=== PATIENT | male | born 1935 | race Caucasian/White ===

== ENCOUNTER 2017-05-17 15:40 | Emergency (ER) | payer OTHER ==
[2017-05-17 15:46] VITALS: BP 117/67; BMI 35.1
--- NOTE | 2017-05-17 16:29 | DR.EXTPAIN ---
HPI - Time seen Time seen: 16:15 - PCP Primary Care Physician: DR. LOZADA - Complaint/Symptoms Chief Complaint Doctor Comments: He states his DrLinda sage gave him meloxicam to take Bid and Tramadol to take up to 5 x/day. He also has Colchicine for Gout. Pain is all over my body, from my head to my toes he states. Nothing is working. He also feels week. Chief Complaint:: PT C/O HR BIENG 40' S AT HOME AND FEELING WEAK, AND HURTING ALL OVER AND HAVING SOME PAINS IN HIS CHEST AT TIMES .. BR PT STATES " I BEEN TO [facility] FOR YEARS AND THEY TOLD ME I HAVE ARTHRITIS. - Nurses notes reviewed Nurses Notes Review: Yes - Source History Provided: Patient - Mode of arrival Mode of Arrival: Ambulatory - Timing Onset of Chief Complaint: 05/16/17 PMH - PMH Past Medical History: Yes Past Medical History: Arthritis, Hypertension Past Medical History Comment: PT HAS BEEN SEEING A HEART DOCTOR ABOUT HIS < HR Past Surgical History: No - Family History History of Family Medical Conditions: No - Social History Does patient currently use any type of tobacco product: No Have you used tobacco products in the last 12 months: No Type of Tobacco Use: None Does any household member use tobacco: No Alcohol Use: None Do you use any recreational Drugs:: No Lives With: Family Lives Where: Home - infectious screening In the last 2 months have you had wt loss of >10#?: NO Have you had fever, night sweats or hemotysis?: No Have you traveled outside the country in the last 6 months?: No Isolation: Standard ROS - Review of Systems Constitutional: No Symptoms Reported Eyes: No Symptoms Reported ENTM: No Symptoms Reported Respiratoy: No Symptoms Reported Cardiovascular: No Symptoms Reported Gastrointestinal/Abdominal: No Symptoms Reported Genitourinary: No Symptoms Reported Neurological: No Symptoms Reported Musculoskeletal: Joint Pain (difuse) Integumentary: No Symptoms Reported Hematologic/Lymphatic: No Symptoms Reported Endocrine: No Symptoms Reported Psychiatric: No Symptoms Reported All Other Systems: Reviewed and Negative PE - Vital Signs Vitals: Temperature 98.2 F Pulse Rate 85 Respiratory Rate 18 Blood Pressure 117/67 O2 Sat by Pulse Oximetry 99 - General Limitations: No Limitations General Appearance: Alert, In No Apparent Distress - Head Head Exam: Normal Inspection - Eyes Eye exam: Normal Appearance - ENT ENT Exam: Normal Exam - Neck Neck Exam: Normal Inspection - Chest Chest Inspection: Normal Inspection - Respiratory Respiratory Exam: Normal Lung Sounds Bilat - Cardiovascular Cardiovascular Exam: Regular Rate, Normal Rhythm, +S1, +S2 - Abdominal Exam Abdominal Exam: Normal Inspection, Normal Bowel Sounds, Soft - Extremities Extremities Exam: Normal Inspection, Other (He has a single tipped cane for ambulatory aid.) - Back Back Exam: Normal Inspection - Neurological Neurological Exam: Alert, Oriented X3, CN II-XII Intact - Psychiatric Psychiatric Exam: Normal Affect, Normal Mood ROR - Labs Reviewed Result Diagrams: 05/17/17 16:29 05/17/17 16:29 Laboratory: WBC 8.0 X10^3/uL (3.6-10.0) 05/17/17 16: RBC 4.89 X10^6/uL (4.7-6.0) 05/17/17 16:29 Hgb 15.2 g/dL (13.5-18.0) 05/17/17 16: Hct 43.0 % (42.0-54.0) 05/17/17 16: MCV 87.9 fL (80.0-100.0) 05/17/17 16:29 MCH 31.2 pg (27.0-34.0) 05/17/17 16: MCHC 35.4 g/dL (33.0-35.0) H 05/17/17 16:29 RDW 13.4 % (11.6-16.5) 05/17/17 16:29 Plt Count 218 X10^3/uL (150.0-450.0) 05/17/17 16:29 MPV 7.4 fL (7.4-11.0) 05/17/17 16:29 Neut % (Auto) 51.5 % (42.0-75.0) 05/17/17 16: Lymph % (Auto) 35.1 % (21.0-51.0) 05/17/17 16:29 [place] % (Auto) 10.3 % (0.0-13.0) 05/17/17 16:29 Eos % (Auto) 1.9 % (0.9-2.9) 05/17/17 16:29 Baso % (Auto) 1.2 % (0.2-1.0) H 05/17/17 16:29 Neut # (Auto) 4.1 x10^3/uL (2.2-4.8) 05/17/17 16:29 Lymph # (Auto) 2.8 X10^3/uL (1.3-2.9) 05/17/17 16:29 [place] # (Auto) 0.8 x10^3/uL (0.3-0.8) 05/17/17 16:29 Eos # (Auto) 0.2 x10^3/uL (0.0-0.2) 05/17/17 16:29 Baso # (Auto) 0.1 X10^3/uL (0.0-0.1) 05/17/17 16:29 Absolute Nucleated RBC 0.0 /100WBC 05/17/17 16:29 Sodium 141 mmol/L (136-145) 05/17/17 16:29 Corrected Sodium TNP 05/17/17 16:29 Potassium 3.6 mmol/L (3.5-5.1) 05/17/17 16:29 Chloride 105 mmol/L (98-107) 05/17/17 16:29 Carbon Dioxide 30.1 mmol/L (21-32) 05/17/17 16:29 BUN 16 mg/dL (7-18) 05/17/17 16:29 Creatinine 1.19 mg/dL (0.70-1.30) 05/17/17 16:29 Est GFR (MDRD) Af Amer > 60 (>60) 05/17/17 16:29 Est GFR (MDRD) Non-Af > 60 (>60) 05/17/17 16:29 Glucose 107 mg/dL (65-99) H 05/17/17 16:29 Calcium 8.9 mg/dL (8.5-10.1) 05/17/17 16:29 Corrected Calcium TNP 05/17/17 16:29 Total Bilirubin 1.00 mg/dL (0.2-1.0) 05/17/17 16:29 AST 24 Units/L (15-37) 05/17/17 16:29 ALT 21 Units/L (12-78) 05/17/17 16:29 Alkaline Phosphatase 62 Units/L (46-116) 05/17/17 16:29 Total Protein 7.3 g/dL (6.4-8.2) 05/17/17 16:29 Albumin 3.6 g/dL (3.4-5.0) 05/17/17 16:29 Globulin 3.7 g/dL (2.5-4.5) 05/17/17 16:29 Albumin/Globulin Ratio 1.0 Ratio (1.1-2.1) L 05/17/17 16:29 Specimen Type Random urine 05/17/17 16:29 Urine Color Yellow (YELLOW) 05/17/17 16:29 Urine Appearance Clear (CLEAR) 05/17/17 16:29 Urine pH 5.0 (5.0 - 8.0) 05/17/17 16:29 Ur Specific [place] 1.010 (1.000-1.030) 05/17/17 16:29 Urine Protein Negative (NEGATIVE) 05/17/17 16:29 Urine Glucose (UA) Negative (NEGATIVE) 05/17/17 16:29 Urine Ketones Negative (NEGATIVE) 05/17/17 16:29 Urine Occult Blood Negative (NEGATIVE) 05/17/17 16:29 Urine Nitrite Negative (NEGATIVE) 05/17/17 16:29 Urine Bilirubin Negative (NEGATIVE) 05/17/17 16:29 Urine Urobilinogen Normal (NORMAL) 05/17/17 16:29 Ur Leukocyte Esterase Negative (NEGATIVE) 05/17/17 16:29 - EKG Rate: 52 [place]: Normal Rhythm: NSR Block: RBBB Hypertrophy: None - Diagnosis Discharge Problem: Multiple joint pain - Discharge Plan Disposition: 01 HOME, SELF-CARE Condition: Stable - Follow ups/Referrals Follow ups/Referrals: KIERRA MCNAMARA V [Primary Care Provider] - 3 days - Instructions Instructions: Musculoskeletal Pain, Joint Pain, [id number]
[2017-05-17 16:49] LABS: BASOPHILS # (AUTO) 0.1 X10^3/uL (0.0-0.1); BASOPHILS % (AUTO) 1.2 % (0.2-1.0); BILIRUBIN,URINE NEGATIVE (NEGATIVE); BLOOD/HEMOGLOBIN,URINE NEGATIVE (NEGATIVE); EOSINOPHILS # (AUTO) 0.2 x10^3/uL (0.0-0.2); EOSINOPHILS % (AUTO) 1.9 % (0.9-2.9); GLUCOSE, URINE NEGATIVE (NEGATIVE); HEMOGLOBIN 15.2 g/dL (13.5-18.0); KETONES,URINE NEGATIVE (NEGATIVE); LEUKOCYTE ESTERASE ,URINE NEGATIVE (NEGATIVE); LYMPHOCYTES # (AUTO) 2.8 X10^3/uL (1.3-2.9); LYMPHOCYTES % (AUTO) 35.1 % (21.0-51.0); MEAN CORPUSCULAR HEMOGLOBIN 31.2 pg (27.0-34.0); MEAN CORPUSCULAR HGB CONC 35.4 g/dL (33.0-35.0); MEAN CORPUSCULAR VOLUME 87.9 fL (80.0-100.0); MEAN PLATELET VOLUME 7.4 fL (7.4-11.0); MONOCYTES # (AUTO) 0.8 x10^3/uL (0.3-0.8); MONOCYTES % (AUTO) 10.3 % (0.0-13.0); NEUTROPHILS # (AUTO) 4.1 x10^3/uL (2.2-4.8); NEUTROPHILS % (AUTO) 51.5 % (42.0-75.0); NITRITES,URINE NEGATIVE (NEGATIVE); PLATELET COUNT 218 X10^3/uL (150.0-450.0); PROTEIN,URINE NEGATIVE (NEGATIVE); RED BLOOD COUNT 4.89 X10^6/uL (4.7-6.0); RED CELL DISTRIBUTION WIDTH 13.4 % (11.6-16.5); UROBILINOGEN,URINE NORMAL (NORMAL)
[2017-05-17] MEDS ORDERED: NORCO 5/325 MG TAB PO ONE (16:52)
[2017-05-17 16:57] LABS: APPEARANCE,URINE CLEAR (CLEAR); COLOR,URINE YELLOW (YELLOW)
[2017-05-17] MEDS ORDERED: NORCO 5/325 MG TAB ONE (17:02)
[2017-05-17 17:06] LABS: ALANINE AMINOTRANSFERASE 21 Units/L (12-78); ALBUMIN 3.6 g/dL (3.4-5.0); ALKALINE PHOSPHATASE 62 Units/L (46-116); ASPARTATE AMINO TRANSFERASE 24 Units/L (15-37); BLOOD UREA NITROGEN 16 mg/dL (7-18); CALCIUM 8.9 mg/dL (8.5-10.1); CARBON DIOXIDE 30.1 mmol/L (21-32); CHLORIDE 105 mmol/L (98-107); CREATININE 1.19 mg/dL (0.70-1.30); SODIUM 141 mmol/L (136-145); TOTAL PROTEIN 7.3 g/dL (6.4-8.2); eGFR BLACK RACES > 60 (>60); eGFR NON BLACK RACES > 60 (>60)
== END 2017-05-17 17:34 | disposition home or self-care (01) ==
LOC: ER 15:55
DX: M25.50 Pain in unspecified joint (principal); R94.31 Abnormal electrocardiogram [ECG] [EKG]
CPT/HCPCS: 36415; 80053; 81003; 85025; 93005; 93010; 99282

== ENCOUNTER 2017-08-11 17:17 | Inpatient (IN) ==
[2017-08-11] MEDS ORDERED: MORPHINE SULFATE INJ 4 MG IM ONE (17:44)
[2017-08-11] MEDS ORDERED: ZOFRAN INJ 4 MG VIAL IM ONE (17:44)
[2017-08-11] MEDS ORDERED: ZOFRAN INJ 4 MG VIAL ONE (17:50)
[2017-08-11] MEDS ORDERED: MORPHINE SULFATE INJ 4 MG ONE (17:50)
[2017-08-11 18:04] LABS: BASOPHILS % (AUTO) 0.1 % (0.2-1.0); EOSINOPHILS # (AUTO) 0.2 x10^3/uL (0.0-0.2); EOSINOPHILS % (AUTO) 1.3 % (0.9-2.9); HEMATOCRIT 37.8 % (42.0-54.0); HEMOGLOBIN 13.3 g/dL (13.5-18.0); LYMPHOCYTES # (AUTO) 1.3 X10^3/uL (1.3-2.9); MEAN CORPUSCULAR HEMOGLOBIN 30.5 pg (27.0-34.0); MEAN CORPUSCULAR HGB CONC 35.1 g/dL (33.0-35.0); MEAN CORPUSCULAR VOLUME 86.8 fL (80.0-100.0); MONOCYTES # (AUTO) 1.6 x10^3/uL (0.3-0.8); MONOCYTES % (AUTO) 11.1 % (0.0-13.0); NEUTROPHILS # (AUTO) 11.4 x10^3/uL (2.2-4.8); NEUTROPHILS % (AUTO) 78.5 % (42.0-75.0); PLATELET COUNT 212 X10^3/uL (150.0-450.0); RED BLOOD COUNT 4.36 X10^6/uL (4.7-6.0); RED CELL DISTRIBUTION WIDTH 13.4 % (11.6-16.5); WHITE BLOOD COUNT 14.6 X10^3/uL (3.6-10.0)
[2017-08-11 18:10] LABS: BLOOD UREA NITROGEN 41 mg/dL (7-18); CALCIUM 8.7 mg/dL (8.5-10.1); CARBON DIOXIDE 25.7 mmol/L (21-32); CHLORIDE 88 mmol/L (98-107); eGFR NON BLACK RACES 13 (>60)
[2017-08-11 18:14] LABS: ALANINE AMINOTRANSFERASE 26 Units/L (12-78); ALBUMIN 2.7 g/dL (3.4-5.0); ALKALINE PHOSPHATASE 85 Units/L (46-116); ASPARTATE AMINO TRANSFERASE 31 Units/L (15-37); COR CA(FOR HYPOALB) 9.7 mg/dL (8.5-10.1); TOTAL PROTEIN 6.9 g/dL (6.4-8.2)
[2017-08-11 18:16] LABS: SODIUM 124 mmol/L (136-145)
--- NOTE | 2017-08-11 20:19 | DR.ABDMALE ---
HPI - Time seen Time seen: 17:30 - PCP Primary Care Physician: Hussein - HPI comment HPI Comment: DEVELOP URINAY RETENSION 08/07/2017. INDWELLING CATH CURRENTLY. TODAY. PAIN GROIN AND PATIENT FELL SICK AND WEAK. NO FEVER. - Complaint Chief Complaint Doctors Comments: GROIN PAIN. INDWELLING RODRIGEZ FOR URINARY RETENSION. Chief Complaint:: Groin Pain Self Treatment fo Chief Complaint: Ultram 50 mg PO - Reviewed Nurses Notes Review: Yes - Mode of arrival Mode of Arrival: Wheelchair - Timing Onset of Chief Complaint: 08/10/17 Came on: Suddenly - Duration Duration: Constant Duration: Days - Location Location: RLQ, LLQ, Suprapubic - Severity Severity: Moderate - Quality Quality: Sharp - Context Onset: At Rest History of: None - Modifying factors Worsening Factors: Nothing Improving Factors: Nothing - Associated signs and symptoms Associated Signs and Symptoms: Other (GROIN PAIN.) PMH - PMH Past Medical History: Yes Past Medical History: Dyslipidemia, Hypertension, Kidney Stones Past Surgical History: Yes Surgical History: Ortho Surgery Past Surgical History Comment: Lower Back x2. Upper Neck - Family History History of Family Medical Conditions: Yes Family Medical History: Heart Failure - Social History Does patient currently use any type of tobacco product: Yes Type of Tobacco Use: Pipe - infectious screening In the last 2 months have you had wt loss of >10#?: NO Have you had fever, night sweats or hemotysis?: No Have you traveled outside the country in the last 6 months?: No Isolation: Standard ROS - Review of Systems Constitutional: Weakness, Fatigue. negative: Chills, Fever Eyes: negative: Eye Pain, Discharge ENTM: negative: Ear Pain, Nose Discharge, Nose Congestion, Throat Pain Respiratoy: Short of Breath. negative: Productive Cough, Non-Productive Cough, Wheezing, Hemoptysis Cardiovascular: Chest Pain Gastrointestinal/Abdominal: Abdominal Pain Genitourinary: Dysuria Neurological: Weakness Musculoskeletal: Back Pain Integumentary: Dryness Hematologic/Lymphatic: No Symptoms Reported Endocrine: No Symptoms Reported All Other Systems: Reviewed and Negative PE - General Limitations: No Limitations General Appearance: Alert - Head Head Exam: Normal Inspection - Eyes Eye exam: Normal Appearance - ENT ENT Exam: Normal External Ear Exam - Neck Neck Exam: Trachea Midline - Chest Chest Inspection: Symmetric Chest Wall Rise - Respiratory Respiratory Exam: Normal Lung Sounds Bilat Respiratory Exam: Bilateral Rhonchi, Lower Rhonchi - Cardiovascular Cardiovascular Exam: Regular Rate, Normal Rhythm, Normal Heart Sounds - Abdominal Exam Abdominal Exam: Normal Bowel Sounds, Soft. negative: Tenderness - Rectal Rectal Exam: Deferred - Back Back Exam: Paraspinal Tenderness - Extremeties Extremities Exam: Normal Inspection - Exam: Male: Deferred - Neurologic Neurological Exam: Alert, Oriented X3 - Psychiatric Psychiatric Exam: Normal Affect, Normal Mood - Skin Skin Exam: Dry - Vital Signs Vital Signs: Temp Pulse Pulse Resp BP BP Pulse Ox 08/11/17 20:57 99.9 F H 72 20 109/63 90 L 08/11/17 17:18 98.8 F 78 22 134/63 98 MDM - Additional Information Obtained From Additional information provided by: Family - Differential Diagnosis Differential Diagnosis: Urinary tract infection, Urolithiasis, Testicular torsion Course - Consultation Consultation Comments: DISCUSS PATIENT DR. DUFF. HE WILL ADMIT PATIENT. - Education/Counseling Education/Counseling: Patient, Family, Education Educated On: Treatment, Diagnosis ROR - Labs Reviewed Laboratory Results Reviewed?: Yes Result Diagrams: 08/12/17 05:29 08/12/17 05:29 - EKG Rhythm: NSR (EKG NOTED.) - Labs Reviewed Laboratory: WBC 14.6 X10^3/uL (3.6-10.0) H 08/11/17 17:54 RBC 4.36 X10^6/uL (4.7-6.0) L 08/11/17 17:54 Hgb 13.3 g/dL (13.5-18.0) L 08/11/17 17:54 Hct 37.8 % (42.0-54.0) L 08/11/17 17:54 MCV 86.8 fL (80.0-100.0) 08/11/17 17:54 MCH 30.5 pg (27.0-34.0) 08/11/17 17:54 MCHC 35.1 g/dL (33.0-35.0) H 08/11/17 17:54 RDW 13.4 % (11.6-16.5) 08/11/17 17:54 Plt Count 212 X10^3/uL (150.0-450.0) 08/11/17 17:54 MPV 7.0 fL (7.4-11.0) L 08/11/17 17:54 Neut % (Auto) 78.5 % (42.0-75.0) H 08/11/17 17:54 Lymph % (Auto) 9.0 % (21.0-51.0) L 08/11/17 17:54 [place] % (Auto) 11.1 % (0.0-13.0) 08/11/17 17:54 Eos % (Auto) 1.3 % (0.9-2.9) 08/11/17 17:54 Baso % (Auto) 0.1 % (0.2-1.0) L 08/11/17 17:54 Neut # (Auto) 11.4 x10^3/uL (2.2-4.8) H 08/11/17 17:54 Lymph # (Auto) 1.3 X10^3/uL (1.3-2.9) 08/11/17 17:54 [place] # (Auto) 1.6 x10^3/uL (0.3-0.8) H 08/11/17 17:54 Eos # (Auto) 0.2 x10^3/uL (0.0-0.2) 08/11/17 17:54 Baso # (Auto) 0.0 X10^3/uL (0.0-0.1) 08/11/17 17:54 Absolute Nucleated RBC 0.0 /100WBC 08/11/17 17:54 Sodium 124 mmol/L (136-145) L* 08/11/17 17:54 Corrected Sodium TNP 08/11/17 17:54 Potassium 4.3 mmol/L (3.5-5.1) 08/11/17 17:54 Chloride 88 mmol/L (98-107) L 08/11/17 17:54 Carbon Dioxide 25.7 mmol/L (21-32) 08/11/17 17:54 BUN 41 mg/dL (7-18) H 08/11/17 17:54 Creatinine 4.80 mg/dL (0.70-1.30) H 08/11/17 17:54 Est GFR (MDRD) Af Amer 15 (>60) L 08/11/17 17:54 Est GFR (MDRD) Non-Af 13 (>60) L 08/11/17 17:54 Glucose 110 mg/dL (65-99) H 08/11/17 17:54 Calcium 8.7 mg/dL (8.5-10.1) 08/11/17 17:54 Corrected Calcium 9.7 mg/dL (8.5-10.1) 08/11/17 17:54 Total Bilirubin 0.60 mg/dL (0.2-1.0) 08/11/17 17:54 AST 31 Units/L (15-37) 08/11/17 17:54 ALT 26 Units/L (12-78) 08/11/17 17:54 Alkaline Phosphatase 85 Units/L (46-116) 08/11/17 17:54 Total Protein 6.9 g/dL (6.4-8.2) 08/11/17 17:54 Albumin 2.7 g/dL (3.4-5.0) L 08/11/17 17:54 Globulin 4.2 g/dL (2.5-4.5) 08/11/17 17:54 Albumin/Globulin Ratio 0.6 Ratio (1.1-2.1) L 08/11/17 17:54 - Diagnosis Discharge Problem: Hyponatremia Acute on chronic renal failure Qualifiers: Acute renal failure type: unspecified Chronic kidney disease stage: unspecified stage Qualified Code(s): N17.9 - Acute kidney failure, unspecified; N18.9 - Chronic kidney disease, unspecified - Discharge Plan Disposition: ADMITTED INPATIENT Condition: Stable
[2017-08-11] MEDS ORDERED: NS 1000 ML 1,000 ML IV ONE (20:24)
[2017-08-11] MEDS ORDERED: DILAUDID PO ONE ×2 (20:26→20:33)
[2017-08-11] MEDS ORDERED: DILAUDID INJ IVP ONE (20:35)
[2017-08-11] MEDS ORDERED: DILAUDID INJ ONE (20:36)
[2017-08-11 21:46] LABS: BILIRUBIN,URINE NEGATIVE (NEGATIVE); BLOOD/HEMOGLOBIN,URINE 5+ (NEGATIVE); GLUCOSE, URINE NEGATIVE (NEGATIVE); KETONES,URINE NEGATIVE (NEGATIVE); LEUKOCYTE ESTERASE ,URINE 1+ (NEGATIVE); NITRITES,URINE NEGATIVE (NEGATIVE); PROTEIN,URINE 2+ (NEGATIVE); UROBILINOGEN,URINE NORMAL (NORMAL)
[2017-08-11 21:48] LABS: APPEARANCE,URINE CLEAR (CLEAR); COLOR,URINE PALE YELLOW (YELLOW)
[2017-08-11 21:55] LABS: AMORPHOUS SEDIMENT,UR 1+ /HPF (NEGATIVE); BACTERIA,URINE NEGATIVE /HPF (NEGATIVE); MUCUS,URINE RARE /HPF (NEGATIVE); SQUAMOUS EPITHELIAL CELL,UR NEGATIVE /HPF (NEGATIVE)
[2017-08-11] MEDS ORDERED: ZOFRAN INJ 4 MG VIAL IVP PRN (22:08)
[2017-08-11 22:21] LABS: CKMB % 1.1 % (<4); CREATINE KINASE 310 Units/L (39-308); CREATINE KINASE MB 3.3 ng/mL (0-4.0); TROPONIN I < 0.02 ng/mL (0-1.5)
[2017-08-11] MEDS: NS 1000 ML 1,000 ML IV SCH (22:50)
[2017-08-11 22:53] VITALS: BMI 33.5
[2017-08-12] MEDS: DILAUDID INJ IVP PRN ×3 (01:51→16:08)
[2017-08-12 06:00] LABS: BASOPHILS % (AUTO) 0.3 % (0.2-1.0); EOSINOPHILS # (AUTO) 0.3 x10^3/uL (0.0-0.2); EOSINOPHILS % (AUTO) 2.4 % (0.9-2.9); HEMATOCRIT 34.4 % (42.0-54.0); HEMOGLOBIN 12.4 g/dL (13.5-18.0); LYMPHOCYTES # (AUTO) 1.3 X10^3/uL (1.3-2.9); LYMPHOCYTES % (AUTO) 10.8 % (21.0-51.0); MEAN CORPUSCULAR HEMOGLOBIN 30.9 pg (27.0-34.0); MEAN PLATELET VOLUME 7.2 fL (7.4-11.0); MONOCYTES # (AUTO) 1.4 x10^3/uL (0.3-0.8); MONOCYTES % (AUTO) 11.7 % (0.0-13.0); NEUTROPHILS # (AUTO) 8.9 x10^3/uL (2.2-4.8); NEUTROPHILS % (AUTO) 74.8 % (42.0-75.0); PLATELET COUNT 190 X10^3/uL (150.0-450.0); RED CELL DISTRIBUTION WIDTH 13.2 % (11.6-16.5); WHITE BLOOD COUNT 11.9 X10^3/uL (3.6-10.0)
[2017-08-12 06:18] LABS: ALANINE AMINOTRANSFERASE 25 Units/L (12-78); ALBUMIN 2.3 g/dL (3.4-5.0); ALKALINE PHOSPHATASE 76 Units/L (46-116); ASPARTATE AMINO TRANSFERASE 32 Units/L (15-37); BLOOD UREA NITROGEN 44 mg/dL (7-18); CALCIUM 8.2 mg/dL (8.5-10.1); CARBON DIOXIDE 22.9 mmol/L (21-32); CHLORIDE 91 mmol/L (98-107); COR CA(FOR HYPOALB) 9.6 mg/dL (8.5-10.1); CREATININE 5.36 mg/dL (0.70-1.30); MAGNESIUM 1.9 mg/dL (1.7-2.9); eGFR NON BLACK RACES 11 (>60)
[2017-08-12] MEDS: NS 1000 ML 1,000 ML IV SCH ×3 (06:28→20:28)
[2017-08-12 06:43] LABS: SODIUM 124 mmol/L (136-145)
[2017-08-12 06:45] LABS: CREATINE KINASE 331 Units/L (39-308); CREATINE KINASE MB 3.3 ng/mL (0-4.0); TROPONIN I < 0.02 ng/mL (0-1.5)
[2017-08-12 08:06] LABS: BILIRUBIN,URINE NEGATIVE (NEGATIVE); BLOOD/HEMOGLOBIN,URINE 5+ (NEGATIVE); GLUCOSE, URINE NEGATIVE (NEGATIVE); KETONES,URINE NEGATIVE (NEGATIVE); LEUKOCYTE ESTERASE ,URINE 3+ (NEGATIVE); NITRITES,URINE NEGATIVE (NEGATIVE); PROTEIN,URINE 4+ (NEGATIVE); UROBILINOGEN,URINE NORMAL (NORMAL)
[2017-08-12 08:15] LABS: APPEARANCE,URINE HAZY (CLEAR); COLOR,URINE YELLOW (YELLOW)
[2017-08-12 08:16] LABS: AMORPHOUS SEDIMENT,UR TRACE /HPF (NEGATIVE); BACTERIA,URINE TRACE /HPF (NEGATIVE); RBC,URINE 0-2 /HPF (NONE SEEN); SQUAMOUS EPITHELIAL CELL,UR RARE /HPF (NEGATIVE)
[2017-08-12] MEDS: CIPRO IV 400 MG PREMIX* 400 MG/200 ML IV.SOLN. IV SCH (08:50)
[2017-08-12] MEDS ORDERED: STERILE WATER IRRIGATION IR ONE (09:31)
[2017-08-12] MEDS: PERCOCET TAB 5/325 MG PO PRN ×2 (10:40→20:28)
--- NOTE | 2017-08-12 10:51 | RAD ---
HISTORY: Abdominal pain, distention Study: Flat and decubitus abdomen, AP chest Comparison: None Findings: The abdominal gas pattern is nonspecific and nonobstructive. No abnormal masses or abnormal calcifica tions are identified. No pneumoperitoneum is present. The chest is clear. IMPRESSION: Unremarkable acute abdominal series Reported By:
--- NOTE | 2017-08-12 11:44 | DR.H&P ---
H&P - History & Physical for Day of: H&P Date: 08/11/17 - Chief Complaint Chief Complaint: SEVERE LOWER ABDOMINA. PAIN, URINARY RETENTION, HAS CATHETER - History of Present Illness History of Present Illness: 82 WM ER ADMISSION AFTER PRESENTING WITH CO DEVELOP URINAY RETENSION 08/07/2017. INDWELLING CATH CURRENTLY. PAIN GROIN AND PATIENT FELL SICK AND WEAK. NO FEVER. PT STATES HE HAD RODRIGEZ PLACED IN ER ON 08/07, FOLLOWED UP WITH DR ESTEVEZ UROLOGIST IN [place] ON THURSDAY AND INSTRUCTED TO RETURN ON THRUS05/14, BUT PAIN WAS SEVERE AND LIMITED URINE OUTPT. PT HAS PMH OF HTN , BPH, AND OA. PT PCP IS DR MCNAMARA IN [place]. PT IN ACUTE RENAL FAILURE ON ADMISSION LABS, ADMITTED FOR TREATMENT AND EVALUATION OF ABDOMINAL PAIN,URINARY RETENTION. - Past Medical History Past Medical History: Dyslipidemia, Hypertension, Kidney Stones - Past Surgical History Surgical History: Ortho Surgery - Family History Family Medical History: Heart Failure - Social History Does patient currently use any type of tobacco product: Yes Have you used tobacco products in the last 12 months: Yes Type of Tobacco Use: Pipe Alcohol Use: None Drug Use: None - Medications Home Medications: No Known Drug Allergies Allergy (Verified 08/11/17 17:44) CONTINUE taking the following medications acetaminophen-codeine [Tylenol-Codeine #3] 1 tab PO Q6H PRN 08/11/17 [History] ciprofloxacin HCl [Cipro] 500 mg PO BID 08/11/17 [History] doxazosin 4 mg PO DAILY 08/11/17 [History] lisinopril-hydrochlorothiazide 1 tab PO DAILY 08/11/17 [History] meloxicam 7.5 mg PO BID 08/11/17 [History] tramadol 100 mg PO TID 08/11/17 [History] - Review of Systems Constitutional: No Symptoms Reported Eyes: No Symptoms Reported ENT: No Symptoms Reported Respiratory: No Symptoms Reported Cardiovascular: No Symptoms Reported Gastrointestinal: Abdominal Pain Genitourinary: Retention Musculoskeletal: Back Pain, Neck Pain Skin: No Symptoms Reported Neurological: No Symptoms Reported - Physical Exam Vital Signs: Temperature 98.8 F Pulse Rate [Right Brachial] 73 Pulse Rate [Left Brachial] 74 Pulse Rate 78 Respiratory Rate 20 Blood Pressure [Right Arm] 101/57 Blood Pressure [Left Arm] 110/78 Blood Pressure 134/63 O2 Sat by Pulse Oximetry 93 Oriented: Normal Eyes: Normal Ear: Normal Nose: Normal Throat: Normal Respiratory: RLL Diminished, LLL Diminished Cardiovascular: Normal, Edema (BILATERAL TRACE LOWER LE EDEMA) : Normal Auscultation: Bowel Sounds: Normal Tenderness: Suprapubic, Severe Skin: Normal Musculoskeletal: Back:Thoracic, Back:Lumbar, Tender (C SPINE) Psychiatric: Agitation Affect: Anxious Speech Pattern: Clear, Appropriate - Assessment/Plan (1) Intractable abdominal pain Status: Acute Plan: ADMIT, IV HYDRATION. PAIN CONTROL, REPEAT AM LABS, CONFIRM HOME MEDS. RODRIGEZ CARE, STRICT I & OS. ADMISSION LABS, UA /UC (2) Acute urinary retention Status: Acute (3) Enlarged prostate with urinary retention Status: Acute (4) Acute on chronic renal failure Qualifiers: Acute renal failure type: unspecified Chronic kidney disease stage: unspecified stage Qualified Code(s): N17.9 - Acute kidney failure, unspecified ; N18.9 - Chronic kidney disease, unspecified Status: Acute - Allergies Allergies/Adverse Reactions: Allergies Allergy/AdvReac Type Severity Reaction Status Date / Time No Known Drug Allergies Allergy Verified 08/11/17 17:44
--- NOTE | 2017-08-12 11:51 | PCM.PROG ---
Progress Note - Progress Note for Day of Date of Exam: 08/12/17 - Subjective Subjective: 82 [facility] ER ADMISSION ON 08/11 WITH URINARY RETENTION AND LOWER ABDOMINAL PAIN, PT RODRIGEZ CATHETER CHANGED WITH IMPROVED ABDOMINAL DISTENTION AND INCREASED URINARY OUTPUT, MONITOR I & OS, INCREASED CREATININE THIS AM, 5.36. WILL ENCOURAGE ORAL HYDRATION WITH IMPROVED RODRIGEZ FUNCTION THIS AM. CT ABD /PELVIC STATE, PAIN CONTROL CONTINUE IV CIPRO, HOLDING LISINOPRIL/HCTZ DUE TO RENAL FAILURE AT THIS TIME. - Past Medical Family Social History Past Med/Fam/Surg Hx: No changes since H&P Allergies: Allergies No Known Drug Allergies Allergy (Verified 08/11/17 17:44) - Review of Systems ROS: No change since H&P - Vital Signs and I&O's Vital Signs: Temperature 99.2 F Pulse Rate [Right Brachial] 66 Pulse Rate [Left Brachial] 74 Pulse Rate 78 Respiratory Rate 20 Blood Pressure [Right Arm] 131/70 Blood Pressure [Left Arm] 110/78 Blood Pressure 134/63 O2 Sat by Pulse Oximetry 96 Intake and Output: Intake & Output 08/09/17 08/10/17 08/11/17 08/12/17 11:59 11:59 11:59 11:59 Intake Total 100 / 100 Output Total 25 / 25 Balance 75 / 75 - Physical Exam Oriented: Normal Eyes: Normal Ear: Normal Nose: Normal Throat: Normal Respiratory: Diminished (MILD LUNG BASES) Cardiovascular: Normal, Edema (BILATERAL TRACE LOWER LE EDEMA) : Normal Auscultation: Bowel Sounds: Normal Tenderness: Suprapubic, Severe Skin: Normal Musculoskeletal: Back:Thoracic, Back:Lumbar, Tender (C SPINE) Psychiatric: Agitation Affect: Anxious Speech Pattern: Clear, Appropriate - Laboratory and Diagnostics Result Diagrams: 08/12/17 05:29 08/12/17 05:29 Labs: 08/12/17 09:55 Axilla - Left Gram Stain - Final Laboratory WBC 11.9 X10^3/uL (3.6-10.0) H 08/12/17 05:29 RBC 4.00 X10^6/uL (4.7-6.0) L 08/12/17 05:29 Hgb 12.4 g/dL (13.5-18.0) L 08/12/17 05:29 Hct 34.4 % (42.0-54.0) L 08/12/17 05:29 MCV 86.0 fL (80.0-100.0) 08/12/17 05:29 MCH 30.9 pg (27.0-34.0) 08/12/17 05:29 MCHC 36.0 g/dL (33.0-35.0) H 08/12/17 05:29 RDW 13.2 % (11.6-16.5) 08/12/17 05:29 Plt Count 190 X10^3/uL (150.0-450.0) 08/12/17 05:29 MPV 7.2 fL (7.4-11.0) L 08/12/17 05:29 Neut % (Auto) 74.8 % (42.0-75.0) 08/12/17 05:29 Lymph % (Auto) 10.8 % (21.0-51.0) L 08/12/17 05:29 [place] % (Auto) 11.7 % (0.0-13.0) 08/12/17 05:29 Eos % (Auto) 2.4 % (0.9-2.9) 08/12/17 05:29 Baso % (Auto) 0.3 % (0.2-1.0) 08/12/17 05:29 Neut # (Auto) 8.9 x10^3/uL (2.2-4.8) H 08/12/17 05:29 Lymph # (Auto) 1.3 X10^3/uL (1.3-2.9) 08/12/17 05:29 [place] # (Auto) 1.4 x10^3/uL (0.3-0.8) H 08/12/17 05:29 Eos # (Auto) 0.3 x10^3/uL (0.0-0.2) H 08/12/17 05:29 Baso # (Auto) 0.0 X10^3/uL (0.0-0.1) 08/12/17 05:29 Absolute Nucleated RBC 0.0 /100WBC 08/12/17 05:29 Sodium 124 mmol/L (136-145) L* 08/12/17 05:29 Corrected Sodium TNP 08/12/17 05:29 Potassium 4.3 mmol/L (3.5-5.1) 08/12/17 05:29 Chloride 91 mmol/L (98-107) L 08/12/17 05:29 Carbon Dioxide 22.9 mmol/L (21-32) 08/12/17 05:29 BUN 44 mg/dL (7-18) H 08/12/17 05:29 Creatinine 5.36 mg/dL (0.70-1.30) H 08/12/17 05:29 Est GFR (MDRD) Af Amer 13 (>60) L 08/12/17 05:29 Est GFR (MDRD) Non-Af 11 (>60) L 08/12/17 05:29 Glucose 95 mg/dL (65-99) 08/12/17 05:29 Calcium 8.2 mg/dL (8.5-10.1) L 08/12/17 05:29 Corrected Calcium 9.6 mg/dL (8.5-10.1) 08/12/17 05:29 Magnesium 1.9 mg/dL (1.7-2.9) 08/12/17 05:29 Total Bilirubin 0.60 mg/dL (0.2-1.0) 08/12/17 05:29 AST 32 Units/L (15-37) 08/12/17 05:29 ALT 25 Units/L (12-78) 08/12/17 05:29 Alkaline Phosphatase 76 Units/L (46-116) 08/12/17 05:29 Creatine Kinase 331 Units/L (39-308) H 08/12/17 05:25 CK-MB (CK-2) 3.3 ng/mL (0-4.0) 08/12/17 05:25 CK/CKMB % Calc 1.0 % (<4) 08/12/17 05:25 Troponin I < 0.02 ng/mL (0-1.5) 08/12/17 05:25 Total Protein 6.0 g/dL (6.4-8.2) L 08/12/17 05:29 Albumin 2.3 g/dL (3.4-5.0) L 08/12/17 05:29 Globulin 3.7 g/dL (2.5-4.5) 08/12/17 05:29 Albumin/Globulin Ratio 0.6 Ratio (1.1-2.1) L 08/12/17 05:29 Specimen Type Catherized urine 08/12/17 07:52 Urine Color Yellow (YELLOW) 08/12/17 07:52 Urine Appearance Hazy (CLEAR) 08/12/17 07:52 Urine pH 6.0 (5.0 - 8.0) 08/12/17 07:52 Ur Specific [place] 1.010 (1.000-1.030) 08/12/17 07:52 Urine Protein 4+ (NEGATIVE) 08/12/17 07:52 Urine Glucose (UA) Negative (NEGATIVE) 08/12/17 07:52 Urine Ketones Negative (NEGATIVE) 08/12/17 07:52 Urine Occult Blood 5+ (NEGATIVE) 08/12/17 07:52 Urine Nitrite Negative (NEGATIVE) 08/12/17 07:52 Urine Bilirubin Negative (NEGATIVE) 08/12/17 07:52 Urine Urobilinogen Normal (NORMAL) 08/12/17 07:52 Ur Leukocyte Esterase 3+ (NEGATIVE) 08/12/17 07:52 Urine RBC 0-2 /HPF (NONE SEEN) 08/12/17 07:52 Urine WBC 3-5 /HPF (NONE SEEN) 08/12/17 07:52 Ur Squamous Epith Cells Rare /HPF (NEGATIVE) 08/12/17 07:52 Amorphous Sediment Trace /HPF (NEGATIVE) 08/12/17 07:52 Urine Bacteria Trace /HPF (NEGATIVE) 08/12/17 07:52 Urine Mucus Rare /HPF (NEGATIVE) 08/11/17 21:40 Ur Culture Indicated? No/not indicated 08/12/17 07:52 - Plan (1) Intractable abdominal pain Status: Acute Plan: IV HYDRATION, CT ABD/PELVIS STAT THIS AM. PAIN CONTROL, REPEAT AM LABS, CONFIRM HOME MEDS. RODRIGEZ CARE, STRICT I & OS. ADMISSION LABS UA /UC (2) Acute urinary retention Status: Acute Plan: RODRIGEZ CATH CHANGED WITH IMPROVED URINARY OUTPT. CT ABD/PELVIS TODAY. PSA LEVEL, IV CIPRO (3) Enlarged prostate with urinary retention Status: Acute (4) Acute on chronic renal failure Status: Acute Qualifiers: Acute renal failure type: unspecified Chronic kidney disease stage: unspecified stage Qualified Code(s): N17.9 - Acute kidney failure, unspecified ; N18.9 - Chronic kidney disease, unspecified Plan: HYDRATION, R/O OBSTRUCTION BPH/RENAL STONE? HOLD DIURETICS, BP MONITORING
[2017-08-12] MEDS ORDERED: DOXAZOSIN 4 MG PO SCH (12:00)
[2017-08-12] MEDS ORDERED: CARDURA PO SCH (12:00)
[2017-08-12 12:03] LABS: CKMB % 1.2 % (<4); CREATINE KINASE 342 Units/L (39-308); TROPONIN I < 0.02 ng/mL (0-1.5)
[2017-08-12] MEDS: AYR NASAL DROPS SCH ×3 (12:31→20:28)
[2017-08-12] MEDS: MILK OF MAGNESIA PO SCH ×2 (12:32→20:29)
--- NOTE | 2017-08-12 12:32 | CT ---
HISTORY: Abdominal distention and severe pain Study: CT abdomen and pelvis without contrast Comparison: None Technique: Multiple axial images of the abdomen and pelvis were obtained without IV contrast. Dose reduction t echniques including Automated Exposure Control (AEC) and adjustment of mA and kV were utilized. Findings: Please note evaluation is limited without use of IV contrast. There is a trace left pleural effusion. Cardiomegaly is noted. The liver, spleen, pancreas, and adre nal glands are unremarkable in their unenhanced CT appearance. The gallbladder is normal. There is bi lateral hydronephrosis and hydroureter, worse on the left to the level of the urinary bladder. There is severe enlargement of the prostate gland with a Piper catheter is seen in the urinary bladder. Fin dings could be on the basis of bladder outlet obstruction. Superimposed infection not excluded. There are punctate nonobstructing bilateral renal calculi but no stones are identified within the ureters. No free intraperitoneal air. No evidence of intestinal obstruction or inflammation. There is retained stool throughout the colon. The appendix is not visualized. No ascites is seen. There is a fat containing umbilical hernia. Multilevel postsurgical and degenerative changes of the l umbar spine are present spanning L2 through L5. Limited evaluation of vascular structures due to lack of contrast. No pathologically enlarged lymph nodes are identified. IMPRESSION: 1. Bilateral hydroureteronephrosis to the level of the urinary bladder with severe enlargement of the prostate gland suggesting this could be due to bladder outlet obstruction. There is a Piper catheter in place with moderate bladder distention. There is surrounding edema and stranding therefore superi mposed infection is not excluded, correlate with urinalysis. There are punctate nonobstructing bilate ral renal calculi without evidence of ureteral stones. 2. Cardiomegaly and trace left pleural effusion. 3. Retained stool throughout the colon. Reported By:
[2017-08-12] MEDS ORDERED: ZOFRAN INJ 4 MG VIAL IVP PRN (14:08)
[2017-08-12 15:12] LABS: ALBUMIN 2.5 g/dL (3.4-5.0); CALCIUM 9.2 mg/dL (8.5-10.1); CARBON DIOXIDE 26.7 mmol/L (21-32); COR CA(FOR HYPOALB) 10.4 mg/dL (8.5-10.1); TOTAL PROTEIN 6.6 g/dL (6.4-8.2)
[2017-08-12] MEDS: ROCEPHIN 1 GRAM IV PREMIX 1 G/50 ML IV.SOLN. IV SCH (16:08)
[2017-08-12] MEDS ORDERED: PROSCAR PO SCH (18:00)
[2017-08-12] MEDS: PROSCAR PO SCH (20:29)
[2017-08-12] MEDS: FLOMAX PO SCH (20:29)
[2017-08-12] MEDS ORDERED: FLOMAX PO SCH (21:00)
[2017-08-13] MEDS ORDERED: DULCOLAX SUPPOSITORY 10 MG RECTAL ONE (00:57)
[2017-08-13] MEDS ORDERED: COLACE CAP 100 MG PO PRN (01:02)
[2017-08-13 05:15] LABS: BASOPHILS # (AUTO) 0.1 X10^3/uL (0.0-0.1); BASOPHILS % (AUTO) 0.6 % (0.2-1.0); EOSINOPHILS # (AUTO) 0.2 x10^3/uL (0.0-0.2); EOSINOPHILS % (AUTO) 1.7 % (0.9-2.9); HEMATOCRIT 35.6 % (42.0-54.0); HEMOGLOBIN 12.8 g/dL (13.5-18.0); LYMPHOCYTES # (AUTO) 1.1 X10^3/uL (1.3-2.9); LYMPHOCYTES % (AUTO) 12.5 % (21.0-51.0); MEAN CORPUSCULAR VOLUME 86.1 fL (80.0-100.0); MEAN PLATELET VOLUME 6.9 fL (7.4-11.0); MONOCYTES # (AUTO) 1.2 x10^3/uL (0.3-0.8); MONOCYTES % (AUTO) 12.6 % (0.0-13.0); NEUTROPHILS # (AUTO) 6.7 x10^3/uL (2.2-4.8); NEUTROPHILS % (AUTO) 72.6 % (42.0-75.0); PLATELET COUNT 230 X10^3/uL (150.0-450.0); RED BLOOD COUNT 4.14 X10^6/uL (4.7-6.0); RED CELL DISTRIBUTION WIDTH 13.2 % (11.6-16.5); WHITE BLOOD COUNT 9.2 X10^3/uL (3.6-10.0)
[2017-08-13 05:30] LABS: ALBUMIN 2.4 g/dL (3.4-5.0); CALCIUM 9.1 mg/dL (8.5-10.1); CARBON DIOXIDE 28.8 mmol/L (21-32); COR CA(FOR HYPOALB) 10.4 mg/dL (8.5-10.1); CREATININE 1.89 mg/dL (0.70-1.30); TOTAL PROTEIN 6.2 g/dL (6.4-8.2)
[2017-08-13] MEDS: MILK OF MAGNESIA PO SCH ×2 (08:47→21:02)
[2017-08-13] MEDS: CIPRO IV 400 MG PREMIX* 400 MG/200 ML IV.SOLN. IV SCH (08:47)
[2017-08-13] MEDS: PROSCAR PO SCH (08:47)
[2017-08-13] MEDS: AYR NASAL DROPS SCH ×4 (08:47→21:03)
[2017-08-13] MEDS: ROCEPHIN 1 GRAM IV PREMIX 1 G/50 ML IV.SOLN. IV SCH (08:48)
[2017-08-13] MEDS: NS 1000 ML 1,000 ML IV SCH ×2 (10:39→16:31)
[2017-08-13] MEDS: PERCOCET TAB 5/325 MG PO PRN ×2 (11:32→21:00)
--- NOTE | 2017-08-13 13:30 | PCM.PROG ---
Progress Note - Progress Note for Day of Date of Exam: 08/13/17 - Subjective Subjective: 82 WM ER ADMISSION ON 08/11 WITH URINARY RETENTION AND LOWER ABDOMINAL PAIN, PT RODRIGEZ CATHETER CHANGED WITH IMPROVED ABDOMINAL DISTENTION AND INCREASED URINARY OUTPUT, MONITOR I & OS, INCREASED CREATININE THIS AM, 1.89 WILL ENCOURAGE ORAL HYDRATION WITH IMPROVED RODRIGEZ FUNCTION THIS AM. , PAIN CONTROL CONTINUE IV CIPRO, HOLDING LISINOPRIL/HCTZ DUE TO RENAL FAILURE AT THIS TIME. - Past Medical Family Social History Past Med/Fam/Surg Hx: No changes since H&P Allergies: Allergies No Known Drug Allergies Allergy (Verified 08/11/17 17:44) - Review of Systems ROS: No change since H&P - Vital Signs and I&O's Vital Signs: Temperature 98.3 F Pulse Rate [Right Brachial] 93 Pulse Rate [Left Brachial] 74 Pulse Rate 78 Respiratory Rate 20 Blood Pressure [Right Arm] 119/67 Blood Pressure [Left Arm] 110/78 Blood Pressure 134/63 O2 Sat by Pulse Oximetry 95 Intake and Output: Intake & Output 08/11/17 08/12/17 08/13/17 08/14/17 11:59 11:59 11:59 11:59 Intake Total 100 / 100 2760 / 2760 Output Total 25 / 25 9675 / 9675 Balance 75 / 75 -6915 / -6915 - Physical Exam Oriented: Normal Eyes: Normal Ear: Normal Nose: Normal Throat: Normal Respiratory: Diminished (MILD LUNG BASES) Cardiovascular: Normal, Edema (BILATERAL TRACE LOWER LE EDEMA) : Normal Auscultation: Bowel Sounds: Normal Tenderness: Suprapubic, Severe Skin: Normal Musculoskeletal: Back:Thoracic, Back:Lumbar, Tender (C SPINE) Psychiatric: Agitation Affect: Anxious Speech Pattern: Clear, Appropriate - Laboratory and Diagnostics Result Diagrams: 08/13/17 04:35 08/13/17 04:35 Labs: 08/12/17 07:52 Urine,Clean Catch Urine Culture - Preliminary 08/12/17 09:55 Axilla - Left Gram Stain - Final 08/12/17 09:55 Axilla - Left Wound Culture - Preliminary Laboratory WBC 9.2 X10^3/uL (3.6-10.0) 08/13/17 04:35 RBC 4.14 X10^6/uL (4.7-6.0) L 08/13/17 04:35 Hgb 12.8 g/dL (13.5-18.0) L 08/13/17 04:35 Hct 35.6 % (42.0-54.0) L 08/13/17 04:35 MCV 86.1 fL (80.0-100.0) 08/13/17 04:35 MCH 31.0 pg (27.0-34.0) 08/13/17 04:35 MCHC 36.0 g/dL (33.0-35.0) H 08/13/17 04:35 RDW 13.2 % (11.6-16.5) 08/13/17 04:35 Plt Count 230 X10^3/uL (150.0-450.0) 08/13/17 04:35 MPV 6.9 fL (7.4-11.0) L 08/13/17 04:35 Neut % (Auto) 72.6 % (42.0-75.0) 08/13/17 04:35 Lymph % (Auto) 12.5 % (21.0-51.0) L 08/13/17 04:35 [place] % (Auto) 12.6 % (0.0-13.0) 08/13/17 04:35 Eos % (Auto) 1.7 % (0.9-2.9) 08/13/17 04:35 Baso % (Auto) 0.6 % (0.2-1.0) 08/13/17 04:35 Neut # (Auto) 6.7 x10^3/uL (2.2-4.8) H 08/13/17 04:35 Lymph # (Auto) 1.1 X10^3/uL (1.3-2.9) L 08/13/17 04:35 [place] # (Auto) 1.2 x10^3/uL (0.3-0.8) H 08/13/17 04:35 Eos # (Auto) 0.2 x10^3/uL (0.0-0.2) 08/13/17 04:35 Baso # (Auto) 0.1 X10^3/uL (0.0-0.1) 08/13/17 04:35 Absolute Nucleated RBC 0.0 /100WBC 08/13/17 04:35 Sodium 139 mmol/L (136-145) 08/13/17 04:35 Corrected Sodium 139 mmol/L (136-145) 08/13/17 04:35 Potassium 4.1 mmol/L (3.5-5.1) 08/13/17 04:35 Chloride 104 mmol/L (98-107) 08/13/17 04:35 Carbon Dioxide 28.8 mmol/L (21-32) 08/13/17 04:35 BUN 25 mg/dL (7-18) H 08/13/17 04:35 Creatinine 1.89 mg/dL (0.70-1.30) H 08/13/17 04:35 Est GFR (MDRD) Af Amer 44 (>60) L 08/13/17 04:35 Est GFR (MDRD) Non-Af 37 (>60) L 08/13/17 04:35 Glucose 111 mg/dL (65-99) H 08/13/17 04:35 Calcium 9.1 mg/dL (8.5-10.1) 08/13/17 04:35 Corrected Calcium 10.4 mg/dL (8.5-10.1) H 08/13/17 04:35 Magnesium 1.9 mg/dL (1.7-2.9) 08/12/17 05:29 Total Bilirubin 0.50 mg/dL (0.2-1.0) 08/13/17 04:35 AST 41 Units/L (15-37) H 08/13/17 04:35 ALT 34 Units/L (12-78) 08/13/17 04:35 Alkaline Phosphatase 100 Units/L (46-116) 08/13/17 04:35 Creatine Kinase 342 Units/L (39-308) H 08/12/17 10:53 CK-MB (CK-2) 4.0 ng/mL (0-4.0) 08/12/17 10:53 CK/CKMB % Calc 1.2 % (<4) 08/12/17 10:53 Troponin I < 0.02 ng/mL (0-1.5) 08/12/17 10:53 Total Protein 6.2 g/dL (6.4-8.2) L 08/13/17 04:35 Albumin 2.4 g/dL (3.4-5.0) L 08/13/17 04:35 Globulin 3.8 g/dL (2.5-4.5) 08/13/17 04:35 Albumin/Globulin Ratio 0.6 Ratio (1.1-2.1) L 08/13/17 04:35 Total PSA 37.30 ng/mL (0.13-4.0) H 08/12/17 05:29 Specimen Type Catherized urine 08/12/17 07:52 Urine Color Yellow (YELLOW) 08/12/17 07:52 Urine Appearance Hazy (CLEAR) 08/12/17 07:52 Urine pH 6.0 (5.0 - 8.0) 08/12/17 07:52 Ur Specific [place] 1.010 (1.000-1.030) 08/12/17 07:52 Urine Protein 4+ (NEGATIVE) 08/12/17 07:52 Urine Glucose (UA) Negative (NEGATIVE) 08/12/17 07:52 Urine Ketones Negative (NEGATIVE) 08/12/17 07:52 Urine Occult Blood 5+ (NEGATIVE) 08/12/17 07:52 Urine Nitrite Negative (NEGATIVE) 08/12/17 07:52 Urine Bilirubin Negative (NEGATIVE) 08/12/17 07:52 Urine Urobilinogen Normal (NORMAL) 08/12/17 07:52 Ur Leukocyte Esterase 3+ (NEGATIVE) 08/12/17 07:52 Urine RBC 0-2 /HPF (NONE SEEN) 08/12/17 07:52 Urine WBC 3-5 /HPF (NONE SEEN) 08/12/17 07:52 Ur Squamous Epith Cells Rare /HPF (NEGATIVE) 08/12/17 07:52 Amorphous Sediment Trace /HPF (NEGATIVE) 08/12/17 07:52 Urine Bacteria Trace /HPF (NEGATIVE) 08/12/17 07:52 Urine Mucus Rare /HPF (NEGATIVE) 08/11/17 21:40 Ur Culture Indicated? No/not indicated 08/12/17 07:52 - Plan (1) Intractable abdominal pain Status: Acute Plan: IV HYDRATION,. PAIN CONTROL, REPEAT AM LABS, CONFIRM HOME MEDS. RODRIGEZ CARE, STRICT I & OS. AM LABS UA /UC (2) Acute urinary retention Status: Acute Plan: RODRIGEZ CATH CHANGED WITH IMPROVED URINARY OUTPT. PSA LEVEL, IV CIPRO (3) Enlarged prostate with urinary retention Status: Acute (4) Acute on chronic renal failure Status: Acute Qualifiers: Acute renal failure type: unspecified Chronic kidney disease stage: unspecified stage Qualified Code(s): N17.9 - Acute kidney failure, unspecified ; N18.9 - Chronic kidney disease, unspecified Plan: HYDRATION, R/O OBSTRUCTION BPH/RENAL STONE? HOLD DIURETICS, BP MONITORING
[2017-08-13] MEDS ORDERED: NYSTATIN POWDER ONE (13:43)
[2017-08-13] MEDS: NYSTATIN POWDER TOP SCH ×2 (13:45→21:02)
[2017-08-13] MEDS ORDERED: VISTARIL PO ONE (15:42)
[2017-08-13] MEDS: VISTARIL PO PRN ×2 (15:56→23:23)
[2017-08-13] MEDS: FLOMAX PO SCH (21:01)
[2017-08-13] MEDS: DILAUDID INJ IVP PRN (21:55)
[2017-08-14] MEDS: NS 1000 ML 1,000 ML IV SCH (02:16)
[2017-08-14 06:16] LABS: BASOPHILS # (AUTO) 0.1 X10^3/uL (0.0-0.1); BASOPHILS % (AUTO) 0.6 % (0.2-1.0); EOSINOPHILS % (AUTO) 0.1 % (0.9-2.9); HEMATOCRIT 38.4 % (42.0-54.0); HEMOGLOBIN 13.5 g/dL (13.5-18.0); LYMPHOCYTES # (AUTO) 0.7 X10^3/uL (1.3-2.9); LYMPHOCYTES % (AUTO) 4.7 % (21.0-51.0); MEAN CORPUSCULAR HEMOGLOBIN 30.6 pg (27.0-34.0); MEAN CORPUSCULAR HGB CONC 35.2 g/dL (33.0-35.0); MEAN CORPUSCULAR VOLUME 86.9 fL (80.0-100.0); MEAN PLATELET VOLUME 6.7 fL (7.4-11.0); MONOCYTES # (AUTO) 1.9 x10^3/uL (0.3-0.8); MONOCYTES % (AUTO) 11.6 % (0.0-13.0); NEUTROPHILS # (AUTO) 13.3 x10^3/uL (2.2-4.8); PLATELET COUNT 268 X10^3/uL (150.0-450.0); RED BLOOD COUNT 4.42 X10^6/uL (4.7-6.0); RED CELL DISTRIBUTION WIDTH 13.4 % (11.6-16.5)
[2017-08-14 06:32] LABS: ALBUMIN 2.9 g/dL (3.4-5.0); CALCIUM 9.6 mg/dL (8.5-10.1); CARBON DIOXIDE 25.7 mmol/L (21-32); COR CA(FOR HYPOALB) 10.5 mg/dL (8.5-10.1); CREATININE 1.89 mg/dL (0.70-1.30); TOTAL PROTEIN 7.2 g/dL (6.4-8.2)
--- NOTE | 2017-08-14 08:43 | RAD ---
HISTORY: Fever. COPD. Diminished breath sounds. Study: AP portable chest Comparison: 08/12/2017 Findings: The lungs are clear. The heart size is normal allowing for technique. No acute bony abnormalities a re identified. [id number] degenerative changes present in the shoulders. Prior cervical spine surgery been performed. IMPRESSION: 1. No radiographic evidence of acute cardiopulmonary disease or significant change is noted when co mpared to the prior examination. Reported By:
[2017-08-14] MEDS: CIPRO IV 400 MG PREMIX* 400 MG/200 ML IV.SOLN. IV SCH (08:45)
[2017-08-14] MEDS: MILK OF MAGNESIA PO SCH ×2 (08:46→20:45)
[2017-08-14] MEDS: PROSCAR PO SCH (08:46)
[2017-08-14] MEDS: ROCEPHIN 1 GRAM IV PREMIX 1 G/50 ML IV.SOLN. IV SCH (08:46)
[2017-08-14] MEDS ORDERED: HALDOL INJ IM ONE (09:39)
[2017-08-14] MEDS ORDERED: GEODON INJ IM STA (10:23)
[2017-08-14] MEDS: NYSTATIN POWDER TOP SCH ×2 (10:54→20:45)
[2017-08-14] MEDS: AYR NASAL DROPS SCH ×4 (10:57→20:45)
[2017-08-14 15:09] LABS: BILIRUBIN,URINE NEGATIVE (NEGATIVE); BLOOD/HEMOGLOBIN,URINE 4+ (NEGATIVE); GLUCOSE, URINE NEGATIVE (NEGATIVE); KETONES,URINE NEGATIVE (NEGATIVE); LEUKOCYTE ESTERASE ,URINE NEGATIVE (NEGATIVE); NITRITES,URINE NEGATIVE (NEGATIVE); PROTEIN,URINE 1+ (NEGATIVE); UROBILINOGEN,URINE NORMAL (NORMAL)
--- NOTE | 2017-08-14 15:14 | CT ---
HISTORY: Altered mental status Study: CT brain without contrast Comparison: None Technique: Multiple axial images of the brain were obtained without administration of IV contrast. Dose reducti on techniques including Automated Exposure Control (AEC) and adjustment of mA and kV were utilized. Findings: There is generalized moderate to advanced cerebral volume loss and nonspecific white matter hypoatten uation likely related to chronic microvascular ischemic changes. No evidence of acute hemorrhage, mi dline shift, mass effect or abnormal extra-axial fluid collection. The ventricular system is symmetr ic and nondilated. The soft tissues and osseous structures are unremarkable. The visualized paranasa l sinuses are clear. IMPRESSION: 1. Cerebral volume loss and nonspecific white matter changes suggesting chronic microvascular disease . No acute intracranial abnormality identified. Reported By:
[2017-08-14 15:18] LABS: APPEARANCE,URINE CLEAR (CLEAR); BACTERIA,URINE NEGATIVE /HPF (NEGATIVE); COLOR,URINE YELLOW (YELLOW); SQUAMOUS EPITHELIAL CELL,UR RARE /HPF (NEGATIVE)
--- NOTE | 2017-08-14 15:23 | CT ---
HISTORY: Abdominal distention and severe pain Study: CT abdomen and pelvis without contrast Comparison: 08/12/2017 Technique: Multiple axial images of the abdomen and pelvis were obtained without IV contrast. Dose reduction t echniques including Automated Exposure Control (AEC) and adjustment of mA and kV were utilized. Findings: Please note evaluation is limited without use of IV contrast. There is stable cardiomegaly. The liver, spleen, pancreas, and adrenal glands are unremarkable in th eir unenhanced CT appearance. The gallbladder is normal. There is persistent bilateral perinephric st randing and mild hydroureteronephrosis to the level of the urinary bladder. The bladder is decompress ed around a Piper catheter. There is severe enlargement of the prostate gland suggesting findings cou ld be related to bladder outlet obstruction. Superimposed infection not excluded. No free intraperitoneal air. No evidence of intestinal obstruction or inflammation. There is moderate retained stool in the colon. No free fluid is identified. The appendix is not seen. There is a fat containing umbilical hernia and chronic postsurgical changes of the lumbar spine. Limi liliam evaluation of vascular structures due to lack of contrast. No pathologically enlarged lymph nodes are identified. IMPRESSION: 1. Stable findings of bilateral perinephric stranding and mild hydroureteronephrosis to the level of the urinary bladder with severe enlargement of the prostate gland. Urinary bladder is decompressed ar ound a Piper catheter. Correlation with urinalysis recommended to exclude infection. 2. Moderate retained stool throughout the colon. 3. Fat containing umbilical hernia and additional chronic findings as described. Reported By:
[2017-08-14] MEDS: FLOMAX PO SCH (20:44)
[2017-08-14] MEDS: COLACE CAP 100 MG PO SCH (20:44)
[2017-08-15 06:03] LABS: BASOPHILS # (AUTO) 0.2 X10^3/uL (0.0-0.1); BASOPHILS % (AUTO) 1.1 % (0.2-1.0); EOSINOPHILS # (AUTO) 0.2 x10^3/uL (0.0-0.2); EOSINOPHILS % (AUTO) 1.7 % (0.9-2.9); HEMATOCRIT 36.5 % (42.0-54.0); HEMOGLOBIN 12.8 g/dL (13.5-18.0); LYMPHOCYTES # (AUTO) 2.4 X10^3/uL (1.3-2.9); LYMPHOCYTES % (AUTO) 17.2 % (21.0-51.0); MEAN CORPUSCULAR HEMOGLOBIN 30.7 pg (27.0-34.0); MEAN CORPUSCULAR HGB CONC 35.1 g/dL (33.0-35.0); MEAN CORPUSCULAR VOLUME 87.5 fL (80.0-100.0); MEAN PLATELET VOLUME 6.9 fL (7.4-11.0); MONOCYTES # (AUTO) 1.6 x10^3/uL (0.3-0.8); MONOCYTES % (AUTO) 11.4 % (0.0-13.0); NEUTROPHILS # (AUTO) 9.5 x10^3/uL (2.2-4.8); NEUTROPHILS % (AUTO) 68.6 % (42.0-75.0); PLATELET COUNT 249 X10^3/uL (150.0-450.0); RED BLOOD COUNT 4.17 X10^6/uL (4.7-6.0); RED CELL DISTRIBUTION WIDTH 13.4 % (11.6-16.5); WHITE BLOOD COUNT 13.8 X10^3/uL (3.6-10.0)
[2017-08-15 06:36] LABS: ALANINE AMINOTRANSFERASE 48 Units/L (12-78); ALBUMIN 2.5 g/dL (3.4-5.0); ALKALINE PHOSPHATASE 89 Units/L (46-116); ASPARTATE AMINO TRANSFERASE 49 Units/L (15-37); BLOOD UREA NITROGEN 16 mg/dL (7-18); CALCIUM 9.2 mg/dL (8.5-10.1); CARBON DIOXIDE 27.6 mmol/L (21-32); CHLORIDE 106 mmol/L (98-107); COR CA(FOR HYPOALB) 10.4 mg/dL (8.5-10.1); CREATININE 1.12 mg/dL (0.70-1.30); SODIUM 142 mmol/L (136-145); TOTAL PROTEIN 6.7 g/dL (6.4-8.2); eGFR NON BLACK RACES > 60 (>60)
[2017-08-15] MEDS: AYR NASAL DROPS SCH ×4 (08:00→21:54)
[2017-08-15] MEDS: MILK OF MAGNESIA PO SCH (08:49)
[2017-08-15] MEDS: PROSCAR PO SCH (08:49)
[2017-08-15] MEDS: COLACE CAP 100 MG PO SCH ×2 (08:49→21:54)
[2017-08-15] MEDS: NYSTATIN POWDER TOP SCH ×2 (08:50→21:54)
[2017-08-15] MEDS: CIPRO IV 400 MG PREMIX* 400 MG/200 ML IV.SOLN. IV SCH (08:50)
[2017-08-15] MEDS: ROCEPHIN 1 GRAM IV PREMIX 1 G/50 ML IV.SOLN. IV SCH (08:50)
[2017-08-15] MEDS: NICOTINE PATCH TD SCH (15:45)
[2017-08-15] MEDS ORDERED: MILK OF MAGNESIA PO PRN (16:49)
[2017-08-15] MEDS: NS 1000 ML 1,000 ML IV SCH (17:28)
[2017-08-15] MEDS: RESTORIL CAP 15 MG PO PRN (19:21)
[2017-08-15] MEDS: ATIVAN INJ 2 MG VIAL IVP PRN (19:21)
[2017-08-15] MEDS: FLOMAX PO SCH (21:54)
--- NOTE | 2017-08-15 22:46 | PCM.PROG ---
Progress Note - Progress Note for Day of Date of Exam: 08/15/17 - Subjective Subjective: 82 WM ER ADMISSION ON 08/11 WITH URINARY RETENTION AND LOWER ABDOMINAL PAIN, PT RODRIGEZ CATHETER CHANGED WITH IMPROVED ABDOMINAL DISTENTION AND INCREASED URINARY OUTPUT, PATIENT TODAY IS TEARFUL. QUESTIONS WHAT IS BEING DONE WITH HIS BPH. DID SEE UROLOGIST LAST WEEK AND HE KNOWS HE IS NOT A CANDIDATE FOR SURGERY. STATES THAT HE HAS HAD HIS PROSTATE "RIMMED OUT" IN PAST. - Past Medical Family Social History Past Med/Fam/Surg Hx: No changes since H&P Allergies: Allergies No Known Drug Allergies Allergy (Verified 08/11/17 17:44) - Review of Systems ROS: No change since H&P - Vital Signs and I&O's Vital Signs: Temperature 98.5 F Pulse Rate [Right Brachial] 87 Pulse Rate [Left Brachial] 74 Pulse Rate 78 Respiratory Rate 20 Blood Pressure [Right Arm] 133/79 Blood Pressure [Left Arm] 120/73 Blood Pressure 134/63 O2 Sat by Pulse Oximetry 91 Intake and Output: Intake & Output 08/13/17 08/14/17 08/15/17 08/16/17 11:59 11:59 11:59 11:59 Intake Total 2760 / 2760 3030 / 3030 2432 / 2432 800 / 800 Output Total 9675 / 9675 3300 / 3300 4350 / 4350 1000 / 1000 Balance -6915 / -6915 -270 / -270 -1918 / -1918 -200 / -200 - Physical Exam Oriented: Normal Eyes: Normal Ear: Normal Nose: Normal Throat: Normal Respiratory: Diminished (MILD LUNG BASES) Cardiovascular: Normal, Edema (BILATERAL TRACE LOWER LE EDEMA) : Normal Auscultation: Bowel Sounds: Normal Tenderness: Suprapubic, Severe Skin: Normal Musculoskeletal: Back:Thoracic, Back:Lumbar, Tender (C SPINE) Psychiatric: Agitation Mood Description: Depressed (CRIES EASILY), Sad Affect: Anxious Speech Pattern: Clear, Appropriate - Laboratory and Diagnostics Result Diagrams: 08/15/17 05:12 08/15/17 05:12 Labs: 08/12/17 07:52 Urine,Clean Catch Urine Culture - Final 08/12/17 09:55 Axilla - Left Gram Stain - Final 08/12/17 09:55 Axilla - Left Wound Culture - Final Methicillin Resis Staph Aureus Laboratory WBC 13.8 X10^3/uL (3.6-10.0) H 08/15/17 05:12 RBC 4.17 X10^6/uL (4.7-6.0) L 08/15/17 05:12 Hgb 12.8 g/dL (13.5-18.0) L 08/15/17 05:12 Hct 36.5 % (42.0-54.0) L 08/15/17 05:12 MCV 87.5 fL (80.0-100.0) 08/15/17 05:12 MCH 30.7 pg (27.0-34.0) 08/15/17 05:12 MCHC 35.1 g/dL (33.0-35.0) H 08/15/17 05:12 RDW 13.4 % (11.6-16.5) 08/15/17 05:12 Plt Count 249 X10^3/uL (150.0-450.0) 08/15/17 05:12 Plt Count Comment Cancelled 08/14/17 05:55 MPV 6.9 fL (7.4-11.0) L 08/15/17 05:12 Neut % (Auto) 68.6 % (42.0-75.0) 08/15/17 05:12 Lymph % (Auto) 17.2 % (21.0-51.0) L 08/15/17 05:12 [place] % (Auto) 11.4 % (0.0-13.0) 08/15/17 05:12 Eos % (Auto) 1.7 % (0.9-2.9) 08/15/17 05:12 Baso % (Auto) 1.1 % (0.2-1.0) H 08/15/17 05:12 Neut # (Auto) 9.5 x10^3/uL (2.2-4.8) H 08/15/17 05:12 Lymph # (Auto) 2.4 X10^3/uL (1.3-2.9) 08/15/17 05:12 [place] # (Auto) 1.6 x10^3/uL (0.3-0.8) H 08/15/17 05:12 Eos # (Auto) 0.2 x10^3/uL (0.0-0.2) 08/15/17 05:12 Baso # (Auto) 0.2 X10^3/uL (0.0-0.1) H 08/15/17 05:12 Absolute Nucleated RBC 0.0 /100WBC 08/15/17 05:12 Nucleated RBCs Cancelled 08/14/17 05:55 Atypical Lymphocytes Cancelled 08/14/17 05:55 Blast Cells Cancelled 08/14/17 05:55 Smudge Cells Cancelled 08/14/17 05:55 Toxic Granulation Cancelled 08/14/17 05:55 Dohle Bodies Cancelled 08/14/17 05:55 Sandor Rods Cancelled 08/14/17 05:55 Plt Clumps, EDTA Cancelled 08/14/17 05:55 Giant Platelets Cancelled 08/14/17 05:55 Plt Morphology Comment Cancelled 08/14/17 05:55 RBC Morphology Cancelled 08/14/17 05:55 Dimorphic RBCs Cancelled 08/14/17 05:55 Polychromasia Cancelled 08/14/17 05:55 Hypochromasia Cancelled 08/14/17 05:55 Poikilocytosis Cancelled 08/14/17 05:55 Basophilic Stippling Cancelled 08/14/17 05:55 Anisocytosis Cancelled 08/14/17 05:55 Microcytosis Cancelled 08/14/17 05:55 Macrocytosis Cancelled 08/14/17 05:55 Spherocytes Cancelled 08/14/17 05:55 Pappenheimer Bodies Cancelled 08/14/17 05:55 Sickle Cells Cancelled 08/14/17 05:55 Target Cells Cancelled 08/14/17 05:55 Tear Drop Cells Cancelled 08/14/17 05:55 Ovalocytes Cancelled 08/14/17 05:55 Stomatocytes Cancelled 08/14/17 05:55 Helmet Cells Cancelled 08/14/17 05:55 [place] Bodies Cancelled 08/14/17 05:55 [place] Rings Cancelled 08/14/17 05:55 [place] Cells Cancelled 08/14/17 05:55 Crenated Cell Cancelled 08/14/17 05:55 Acanthocytes (Spur) Cancelled 08/14/17 05:55 Rouleaux Cancelled 08/14/17 05:55 Schistocytes Cancelled 08/14/17 05:55 Sodium 142 mmol/L (136-145) 08/15/17 05:12 Corrected Sodium TNP 08/15/17 05:12 Potassium 4.0 mmol/L (3.5-5.1) 08/15/17 05:12 Chloride 106 mmol/L (98-107) 08/15/17 05:12 Carbon Dioxide 27.6 mmol/L (21-32) 08/15/17 05:12 BUN 16 mg/dL (7-18) 08/15/17 05:12 Creatinine 1.12 mg/dL (0.70-1.30) 08/15/17 05:12 Est GFR (MDRD) Af Amer > 60 (>60) 08/15/17 05:12 Est GFR (MDRD) Non-Af > 60 (>60) 08/15/17 05:12 Glucose 100 mg/dL (65-99) H 08/15/17 05:12 Lactic Acid 1.7 mmol/L (0.4-2.0) 08/14/17 11:11 Calcium 9.2 mg/dL (8.5-10.1) 08/15/17 05:12 Corrected Calcium 10.4 mg/dL (8.5-10.1) H 08/15/17 05:12 Magnesium 1.9 mg/dL (1.7-2.9) 08/12/17 05:29 Total Bilirubin 0.70 mg/dL (0.2-1.0) 08/15/17 05:12 AST 49 Units/L (15-37) H 08/15/17 05:12 ALT 48 Units/L (12-78) 08/15/17 05:12 Alkaline Phosphatase 89 Units/L (46-116) 08/15/17 05:12 Creatine Kinase 342 Units/L (39-308) H 08/12/17 10:53 CK-MB (CK-2) 4.0 ng/mL (0-4.0) 08/12/17 10:53 CK/CKMB % Calc 1.2 % (<4) 08/12/17 10:53 Troponin I < 0.02 ng/mL (0-1.5) 08/12/17 10:53 Total Protein 6.7 g/dL (6.4-8.2) 08/15/17 05:12 Albumin 2.5 g/dL (3.4-5.0) L 08/15/17 05:12 Globulin 4.2 g/dL (2.5-4.5) 08/15/17 05:12 Albumin/Globulin Ratio 0.6 Ratio (1.1-2.1) L 08/15/17 05:12 Total PSA 37.30 ng/mL (0.13-4.0) H 08/12/17 05:29 Specimen Type Catherized urine 08/14/17 14:56 Urine Color Yellow (YELLOW) 08/14/17 14:56 Urine Appearance Clear (CLEAR) 08/14/17 14:56 Urine pH 8.0 (5.0 - 8.0) 08/14/17 14:56 Ur Specific [place] 1.010 (1.000-1.030) 08/14/17 14:56 Urine Protein 1+ (NEGATIVE) 08/14/17 14:56 Urine Glucose (UA) Negative (NEGATIVE) 08/14/17 14:56 Urine Ketones Negative (NEGATIVE) 08/14/17 14:56 Urine Occult Blood 4+ (NEGATIVE) 08/14/17 14:56 Urine Nitrite Negative (NEGATIVE) 08/14/17 14:56 Urine Bilirubin Negative (NEGATIVE) 08/14/17 14:56 Urine Urobilinogen Normal (NORMAL) 08/14/17 14:56 Ur Leukocyte Esterase Negative (NEGATIVE) 08/14/17 14:56 Urine RBC 3-5 /HPF (NONE SEEN) 08/14/17 14:56 Urine WBC 0-2 /HPF (NONE SEEN) 08/14/17 14:56 Ur Squamous Epith Cells Rare /HPF (NEGATIVE) 08/14/17 14:56 Amorphous Sediment Trace /HPF (NEGATIVE) 08/12/17 07:52 Urine Bacteria Negative /HPF (NEGATIVE) 08/14/17 14:56 Urine Mucus Rare /HPF (NEGATIVE) 08/11/17 21:40 Ur Culture Indicated? No/not indicated 08/14/17 14:56 - Plan (1) Pyelonephritis Status: Acute Plan: ROCEPHIN AND CIPRO IV (2) Leukocytosis Status: Acute Plan: ROCEPHIN AND CIPRO IV, MONITOR CBC (3) Cellulitis of axilla, left Status: Acute Plan: CONTINUE CURRENT CARE (4) Acute on chronic renal failure Status: Acute Qualifiers: Acute renal failure type: unspecified Chronic kidney disease stage: unspecified stage Qualified Code(s): N17.9 - Acute kidney failure, unspecified ; N18.9 - Chronic kidney disease, unspecified Plan: HYDRATION, R/O OBSTRUCTION BPH/RENAL STONE? HOLD DIURETICS, BP MONITORING (5) Intractable abdominal pain Status: Acute Plan: IV HYDRATION,. PAIN CONTROL, REPEAT AM LABS, CONFIRM HOME MEDS. RODRIGEZ CARE, STRICT I & OS. AM LABS UA /UC (6) Acute urinary retention Status: Acute Plan: RODRIGEZ CATH CHANGED WITH IMPROVED URINARY OUTPT. PSA LEVEL, IV CIPRO (7) Enlarged prostate with urinary retention Status: Acute
[2017-08-16 06:58] LABS: BASOPHILS # (AUTO) 0.1 X10^3/uL (0.0-0.1); BASOPHILS % (AUTO) 1.1 % (0.2-1.0); EOSINOPHILS # (AUTO) 0.4 x10^3/uL (0.0-0.2); EOSINOPHILS % (AUTO) 3.3 % (0.9-2.9); HEMATOCRIT 35.8 % (42.0-54.0); HEMOGLOBIN 12.7 g/dL (13.5-18.0); LYMPHOCYTES # (AUTO) 2.7 X10^3/uL (1.3-2.9); LYMPHOCYTES % (AUTO) 21.3 % (21.0-51.0); MEAN CORPUSCULAR HEMOGLOBIN 30.8 pg (27.0-34.0); MEAN CORPUSCULAR HGB CONC 35.5 g/dL (33.0-35.0); MEAN PLATELET VOLUME 6.7 fL (7.4-11.0); MONOCYTES # (AUTO) 1.4 x10^3/uL (0.3-0.8); MONOCYTES % (AUTO) 10.6 % (0.0-13.0); NEUTROPHILS # (AUTO) 8.2 x10^3/uL (2.2-4.8); NEUTROPHILS % (AUTO) 63.7 % (42.0-75.0); PLATELET COUNT 342 X10^3/uL (150.0-450.0); RED BLOOD COUNT 4.12 X10^6/uL (4.7-6.0); RED CELL DISTRIBUTION WIDTH 13.2 % (11.6-16.5); WHITE BLOOD COUNT 12.9 X10^3/uL (3.6-10.0)
[2017-08-16 07:48] LABS: BLOOD UREA NITROGEN 13 mg/dL (7-18); CALCIUM 9.4 mg/dL (8.5-10.1); CARBON DIOXIDE 25.4 mmol/L (21-32); CHLORIDE 104 mmol/L (98-107); CREATININE 1.12 mg/dL (0.70-1.30); SODIUM 139 mmol/L (136-145); eGFR NON BLACK RACES > 60 (>60)
[2017-08-16] MEDS ORDERED: LEXAPRO ONE (09:14)
[2017-08-16] MEDS: LEXAPRO PO SCH (09:33)
[2017-08-16] MEDS: PROSCAR PO SCH (09:33)
[2017-08-16] MEDS: NICOTINE PATCH TD SCH (09:34)
[2017-08-16] MEDS: ROCEPHIN 1 GRAM IV PREMIX 1 G/50 ML IV.SOLN. IV SCH (09:34)
[2017-08-16] MEDS: AYR NASAL DROPS SCH ×3 (09:37→21:17)
[2017-08-16] MEDS: NYSTATIN POWDER TOP SCH ×2 (09:37→21:18)
[2017-08-16] MEDS: CIPRO IV 400 MG PREMIX* 400 MG/200 ML IV.SOLN. IV SCH (09:37)
[2017-08-16 12:13] LABS: ALANINE AMINOTRANSFERASE 64 Units/L (12-78); ALBUMIN 2.5 g/dL (3.4-5.0); ALKALINE PHOSPHATASE 87 Units/L (46-116); ASPARTATE AMINO TRANSFERASE 57 Units/L (15-37); COR CA(FOR HYPOALB) 10.6 mg/dL (8.5-10.1); TOTAL PROTEIN 6.8 g/dL (6.4-8.2)
[2017-08-16] MEDS ORDERED: POTASSIUM CHL 60 MEQ/NS 0.45% 500 ML IV PRN (13:19)
[2017-08-16] MEDS ORDERED: K-RIDER 10 MEQ/NS 100 ML 10 MEQ/100 ML BAG IV PRN (13:19)
[2017-08-16] MEDS ORDERED: POTASSIUM CHL 40 MEQ/NS 0.45% 500 ML IV PRN (13:19)
[2017-08-16] MEDS ORDERED: POTASSIUM CHLORIDE LIQ 20 MEQ UDC PO PRN (13:19)
[2017-08-16] MEDS ORDERED: K-LYTE EFFERVESCENT PO PRN (13:19)
[2017-08-16] MEDS: ATIVAN INJ 2 MG VIAL IVP PRN (14:08)
[2017-08-16] MEDS: MAGNESIUM SULFATE 1 GRAM/100 mL PREMIX 1 GM/100 ML BAG IV PRN ×2 (20:32→21:31)
[2017-08-16] MEDS: COLACE CAP 100 MG PO SCH (21:17)
[2017-08-16] MEDS: FLOMAX PO SCH (21:17)
--- NOTE | 2017-08-16 23:06 | PCM.PROG ---
Progress Note - Progress Note for Day of Date of Exam: 08/16/17 - Subjective Subjective: 82 WM ER ADMISSION ON 08/11 WITH URINARY RETENTION AND LOWER ABDOMINAL PAIN, PT RODRIGEZ CATHETER CHANGED WITH IMPROVED ABDOMINAL DISTENTION AND INCREASED URINARY OUTPUT. STATES THAT HE HAS HAD HIS PROSTATE "RIMMED OUT" IN PAST. FAMILY IS PRESENT AND STATES HE IS SCHEDULED FOR NECK SURGERY ON THURSDAY WITH DR VALENCIA AT [facility]. ASKS FOR NEURONTIN TO BE RESUMED FOR RLS. PATIENT CONCERNED DUE TO INCREASING LEG WEAKNESS AND INABILITY TO WALK. DISCUSSED WITH PATIENT AND FAMILY POSSIBLE TRANSFER TO ELEVATE URINARY RETENTION. - Past Medical Family Social History Past Med/Fam/Surg Hx: No changes since H&P Allergies: Allergies No Known Drug Allergies Allergy (Verified 08/11/17 17:44) - Review of Systems ROS: No change since H&P - Vital Signs and I&O's Vital Signs: Temperature 98.1 F Pulse Rate [Right Brachial] 81 Pulse Rate [Left Brachial] 74 Pulse Rate 78 Respiratory Rate 20 Blood Pressure [Right Arm] 123/80 Blood Pressure [Left Arm] 120/73 Blood Pressure 134/63 O2 Sat by Pulse Oximetry 97 Intake and Output: Intake & Output 08/14/17 08/15/17 08/16/17 08/17/17 11:59 11:59 11:59 11:59 Intake Total 3030 / 3030 2432 / 2432 950 / 950 1511 / 1511 Output Total 3300 / 3300 4350 / 4350 2150 / 2150 600 / 600 Balance -270 / -270 -1918 / -1918 -1200 / -1200 911 / 911 - Physical Exam Oriented: Normal Eyes: Normal Ear: Normal Nose: Normal Throat: Normal Respiratory: Diminished (MILD LUNG BASES) Cardiovascular: Normal, Edema (BILATERAL TRACE LOWER LE EDEMA) : Normal Auscultation: Bowel Sounds: Normal Palpation: Normal Tenderness: Suprapubic, Severe Skin: Normal Musculoskeletal: Back:Thoracic, Back:Lumbar, Tender (C SPINE) Psychiatric: Agitation Mood Description: Depressed (CRIES EASILY), Sad Affect: Anxious Speech Pattern: Clear, Appropriate - Laboratory and Diagnostics Result Diagrams: 08/16/17 05:32 08/16/17 05:32 Labs: 08/14/17 08:40 Blood Blood Culture - Preliminary 08/12/17 07:52 Urine,Clean Catch Urine Culture - Final 08/12/17 09:55 Axilla - Left Gram Stain - Final 08/12/17 09:55 Axilla - Left Wound Culture - Final Methicillin Resis Staph Aureus Laboratory WBC 12.9 X10^3/uL (3.6-10.0) H 08/16/17 05:32 RBC 4.12 X10^6/uL (4.7-6.0) L 08/16/17 05:32 Hgb 12.7 g/dL (13.5-18.0) L 08/16/17 05:32 Hct 35.8 % (42.0-54.0) L 08/16/17 05:32 MCV 87.0 fL (80.0-100.0) 08/16/17 05:32 MCH 30.8 pg (27.0-34.0) 08/16/17 05:32 MCHC 35.5 g/dL (33.0-35.0) H 08/16/17 05:32 RDW 13.2 % (11.6-16.5) 08/16/17 05:32 Plt Count 342 X10^3/uL (150.0-450.0) 08/16/17 05:32 Plt Count Comment Cancelled 08/14/17 05:55 MPV 6.7 fL (7.4-11.0) L 08/16/17 05:32 Neut % (Auto) 63.7 % (42.0-75.0) 08/16/17 05:32 Lymph % (Auto) 21.3 % (21.0-51.0) 08/16/17 05:32 [place] % (Auto) 10.6 % (0.0-13.0) 08/16/17 05:32 Eos % (Auto) 3.3 % (0.9-2.9) H 08/16/17 05:32 Baso % (Auto) 1.1 % (0.2-1.0) H 08/16/17 05:32 Neut # (Auto) 8.2 x10^3/uL (2.2-4.8) H 08/16/17 05:32 Lymph # (Auto) 2.7 X10^3/uL (1.3-2.9) 08/16/17 05:32 [place] # (Auto) 1.4 x10^3/uL (0.3-0.8) H 08/16/17 05:32 Eos # (Auto) 0.4 x10^3/uL (0.0-0.2) H 08/16/17 05:32 Baso # (Auto) 0.1 X10^3/uL (0.0-0.1) 08/16/17 05:32 Absolute Nucleated RBC 0.1 /100WBC 08/16/17 05:32 Nucleated RBCs Cancelled 08/14/17 05:55 Atypical Lymphocytes Cancelled 08/14/17 05:55 Blast Cells Cancelled 08/14/17 05:55 Smudge Cells Cancelled 08/14/17 05:55 Toxic Granulation Cancelled 08/14/17 05:55 Dohle Bodies Cancelled 08/14/17 05:55 Sandor Rods Cancelled 08/14/17 05:55 Plt Clumps, EDTA Cancelled 08/14/17 05:55 Giant Platelets Cancelled 08/14/17 05:55 Plt Morphology Comment Cancelled 08/14/17 05:55 RBC Morphology Cancelled 08/14/17 05:55 Dimorphic RBCs Cancelled 08/14/17 05:55 Polychromasia Cancelled 08/14/17 05:55 Hypochromasia Cancelled 08/14/17 05:55 Poikilocytosis Cancelled 08/14/17 05:55 Basophilic Stippling Cancelled 08/14/17 05:55 Anisocytosis Cancelled 08/14/17 05:55 Microcytosis Cancelled 08/14/17 05:55 Macrocytosis Cancelled 08/14/17 05:55 Spherocytes Cancelled 08/14/17 05:55 Pappenheimer Bodies Cancelled 08/14/17 05:55 Sickle Cells Cancelled 08/14/17 05:55 Target Cells Cancelled 08/14/17 05:55 Tear Drop Cells Cancelled 08/14/17 05:55 Ovalocytes Cancelled 08/14/17 05:55 Stomatocytes Cancelled 08/14/17 05:55 Helmet Cells Cancelled 08/14/17 05:55 Plata[place] Bodies Cancelled 08/14/17 05:55 [place] Rings Cancelled 08/14/17 05:55 [place] Cells Cancelled 08/14/17 05:55 Crenated Cell Cancelled 08/14/17 05:55 Acanthocytes (Spur) Cancelled 08/14/17 05:55 Rouleaux Cancelled 08/14/17 05:55 Schistocytes Cancelled 08/14/17 05:55 Sodium 139 mmol/L (136-145) 08/16/17 05:32 Corrected Sodium TNP 08/16/17 05:32 Potassium 3.3 mmol/L (3.5-5.1) L 08/16/17 05:32 Chloride 104 mmol/L (98-107) 08/16/17 05:32 Carbon Dioxide 25.4 mmol/L (21-32) 08/16/17 05:32 BUN 13 mg/dL (7-18) 08/16/17 05:32 Creatinine 1.12 mg/dL (0.70-1.30) 08/16/17 05:32 Est GFR (MDRD) Af Amer > 60 (>60) 08/16/17 05:32 Est GFR (MDRD) Non-Af > 60 (>60) 08/16/17 05:32 Glucose 83 mg/dL (65-99) 08/16/17 05:32 Lactic Acid 1.7 mmol/L (0.4-2.0) 08/14/17 11:11 Calcium 9.4 mg/dL (8.5-10.1) 08/16/17 05:32 Corrected Calcium 10.6 mg/dL (8.5-10.1) H 08/16/17 05:32 Magnesium 1.5 mg/dL (1.7-2.9) L 08/16/17 05:32 Total Bilirubin 0.60 mg/dL (0.2-1.0) 08/16/17 05:32 AST 57 Units/L (15-37) H 08/16/17 05:32 ALT 64 Units/L (12-78) 08/16/17 05:32 Alkaline Phosphatase 87 Units/L (46-116) 08/16/17 05:32 Creatine Kinase 342 Units/L (39-308) H 08/12/17 10:53 CK-MB (CK-2) 4.0 ng/mL (0-4.0) 08/12/17 10:53 CK/CKMB % Calc 1.2 % (<4) 08/12/17 10:53 Troponin I < 0.02 ng/mL (0-1.5) 08/12/17 10:53 Total Protein 6.8 g/dL (6.4-8.2) 08/16/17 05:32 Albumin 2.5 g/dL (3.4-5.0) L 08/16/17 05:32 Globulin 4.3 g/dL (2.5-4.5) 08/16/17 05:32 Albumin/Globulin Ratio 0.6 Ratio (1.1-2.1) L 08/16/17 05:32 Total PSA 37.30 ng/mL (0.13-4.0) H 08/12/17 05:29 Specimen Type Catherized urine 08/14/17 14:56 Urine Color Yellow (YELLOW) 08/14/17 14:56 Urine Appearance Clear (CLEAR) 08/14/17 14:56 Urine pH 8.0 (5.0 - 8.0) 08/14/17 14:56 Ur Specific [place] 1.010 (1.000-1.030) 08/14/17 14:56 Urine Protein 1+ (NEGATIVE) 08/14/17 14:56 Urine Glucose (UA) Negative (NEGATIVE) 08/14/17 14:56 Urine Ketones Negative (NEGATIVE) 08/14/17 14:56 Urine Occult Blood 4+ (NEGATIVE) 08/14/17 14:56 Urine Nitrite Negative (NEGATIVE) 08/14/17 14:56 Urine Bilirubin Negative (NEGATIVE) 08/14/17 14:56 Urine Urobilinogen Normal (NORMAL) 08/14/17 14:56 Ur Leukocyte Esterase Negative (NEGATIVE) 08/14/17 14:56 Urine RBC 3-5 /HPF (NONE SEEN) 08/14/17 14:56 Urine WBC 0-2 /HPF (NONE SEEN) 08/14/17 14:56 Ur Squamous Epith Cells Rare /HPF (NEGATIVE) 08/14/17 14:56 Amorphous Sediment Trace /HPF (NEGATIVE) 08/12/17 07:52 Urine Bacteria Negative /HPF (NEGATIVE) 08/14/17 14:56 Urine Mucus Rare /HPF (NEGATIVE) 08/11/17 21:40 Ur Culture Indicated? No/not indicated 08/14/17 14:56 - Plan (1) Pyelonephritis Status: Acute Plan: ROCEPHIN AND CIPRO IV (2) Leukocytosis Status: Acute Plan: ROCEPHIN AND CIPRO IV, MONITOR CBC (3) Cellulitis of axilla, left Status: Acute Plan: CONTINUE CURRENT CARE (4) Acute on chronic renal failure Status: Acute Qualifiers: Acute renal failure type: unspecified Chronic kidney disease stage: unspecified stage Qualified Code(s): N17.9 - Acute kidney failure, unspecified ; N18.9 - Chronic kidney disease, unspecified Plan: HYDRATION, R/O OBSTRUCTION BPH/RENAL STONE? HOLD DIURETICS, BP MONITORING (5) Intractable abdominal pain Status: Acute Plan: IV HYDRATION,. PAIN CONTROL, REPEAT AM LABS, CONFIRM HOME MEDS. RODRIGEZ CARE, STRICT I & OS. AM LABS UA /UC (6) Acute urinary retention Status: Acute Plan: RODRIGEZ CATH CHANGED WITH IMPROVED URINARY OUTPT. PSA LEVEL ELEVATED, IV CIPRO (7) Enlarged prostate with urinary retention Status: Acute Narrative Support Text: ELEVATED PSA (8) Elevated prostate specific antigen (PSA) Status: Acute Plan: CONTINUE RODRIGEZ (9) Degenerative disc disease, cervical Status: Acute
[2017-08-16] MEDS: RESTORIL CAP 15 MG PO PRN (23:45)
[2017-08-17 06:32] LABS: BASOPHILS # (AUTO) 0.1 X10^3/uL (0.0-0.1); BASOPHILS % (AUTO) 0.7 % (0.2-1.0); EOSINOPHILS # (AUTO) 0.4 x10^3/uL (0.0-0.2); EOSINOPHILS % (AUTO) 3.7 % (0.9-2.9); HEMATOCRIT 36.5 % (42.0-54.0); HEMOGLOBIN 12.9 g/dL (13.5-18.0); LYMPHOCYTES # (AUTO) 2.3 X10^3/uL (1.3-2.9); LYMPHOCYTES % (AUTO) 20.5 % (21.0-51.0); MEAN CORPUSCULAR HEMOGLOBIN 30.6 pg (27.0-34.0); MEAN CORPUSCULAR HGB CONC 35.3 g/dL (33.0-35.0); MEAN CORPUSCULAR VOLUME 86.6 fL (80.0-100.0); MEAN PLATELET VOLUME 6.2 fL (7.4-11.0); MONOCYTES # (AUTO) 0.9 x10^3/uL (0.3-0.8); MONOCYTES % (AUTO) 8.1 % (0.0-13.0); NEUTROPHILS # (AUTO) 7.6 x10^3/uL (2.2-4.8); PLATELET COUNT 323 X10^3/uL (150.0-450.0); RED BLOOD COUNT 4.22 X10^6/uL (4.7-6.0); RED CELL DISTRIBUTION WIDTH 13.2 % (11.6-16.5); WHITE BLOOD COUNT 11.3 X10^3/uL (3.6-10.0)
[2017-08-17 06:43] LABS: ALANINE AMINOTRANSFERASE 63 Units/L (12-78); ALBUMIN 2.4 g/dL (3.4-5.0); ALKALINE PHOSPHATASE 83 Units/L (46-116); ASPARTATE AMINO TRANSFERASE 48 Units/L (15-37); BLOOD UREA NITROGEN 14 mg/dL (7-18); CALCIUM 8.7 mg/dL (8.5-10.1); CARBON DIOXIDE 27.2 mmol/L (21-32); CHLORIDE 104 mmol/L (98-107); SODIUM 139 mmol/L (136-145); TOTAL PROTEIN 6.7 g/dL (6.4-8.2); eGFR NON BLACK RACES > 60 (>60)
[2017-08-17] MEDS ORDERED: LEXAPRO ONE (08:10)
[2017-08-17] MEDS: CIPRO IV 400 MG PREMIX* 400 MG/200 ML IV.SOLN. IV SCH (08:53)
[2017-08-17] MEDS: AYR NASAL DROPS SCH ×2 (08:53→14:25)
[2017-08-17] MEDS: LEXAPRO PO SCH (08:54)
[2017-08-17] MEDS: NICOTINE PATCH TD SCH (08:55)
[2017-08-17] MEDS: NYSTATIN POWDER TOP SCH (08:55)
[2017-08-17] MEDS: PROSCAR PO SCH (08:55)
[2017-08-17] MEDS: ROCEPHIN 1 GRAM IV PREMIX 1 G/50 ML IV.SOLN. IV SCH (08:56)
[2017-08-17] MEDS: NS 1000 ML 1,000 ML IV SCH (12:02)
[2017-08-17 15:42] VITALS: BP 128/65
[2017-08-17] MEDS ORDERED: ASPIRIN EC 81 MG PO SCH (16:00)
--- NOTE | 2017-08-22 23:29 | PCM.DCPLAN ---
Discharge Summary - Admission Date Date of Admission: 08/11/17 - Discharge Date Discharge Date: 08/17/17 - Admission Diagnoses (1) Acute on chronic renal failure Status: Acute (2) Acute urinary retention Status: Acute (3) Cellulitis of axilla, left Status: Acute (4) Cervical disc disease with myelopathy Status: Acute (5) Elevated prostate specific antigen (PSA) Status: Acute (6) Enlarged prostate with urinary retention Status: Acute (7) Hyponatremia Status: Acute (8) Intractable abdominal pain Status: Acute (9) Leukocytosis Status: Acute - Discharge Diagnoses Discharge Diagnosis: SAME ADMISSION DIAGNOSIS - Discharge Medications Discharge Medications: Home Medication List acetaminophen-codeine [Tylenol-Codeine #3] 1 tab PO Q6H PRN 08/11/17 [History] ciprofloxacin HCl [Cipro] 500 mg PO BID 08/11/17 [History] doxazosin 4 mg PO DAILY 08/11/17 [History] lisinopril-hydrochlorothiazide 1 tab PO DAILY 08/11/17 [History] meloxicam 7.5 mg PO BID 08/11/17 [History] tramadol 100 mg PO TID 08/11/17 [History] gabapentin [Neurontin] 300 mg PO DAILY 08/16/17 [History] Prescriptions: - Hospital Course Vital Signs: Temperature 98.6 F Pulse Rate [Right Brachial] 81 Pulse Rate [Left Brachial] 74 Pulse Rate 78 Respiratory Rate 20 Blood Pressure [Right Arm] 128/65 Blood Pressure [Left Arm] 120/73 Blood Pressure [Left Arm] 116/62 Blood Pressure 134/63 O2 Sat by Pulse Oximetry 98 Latest Lab Results: Laboratory Last Values WBC 11.3 X10^3/uL (3.6-10.0) H 08/17/17 06:08 RBC 4.22 X10^6/uL (4.7-6.0) L 08/17/17 06:08 Hgb 12.9 g/dL (13.5-18.0) L 08/17/17 06:08 Hct 36.5 % (42.0-54.0) L 08/17/17 06:08 MCV 86.6 fL (80.0-100.0) 08/17/17 06:08 MCH 30.6 pg (27.0-34.0) 08/17/17 06:08 MCHC 35.3 g/dL (33.0-35.0) H 08/17/17 06:08 RDW 13.2 % (11.6-16.5) 08/17/17 06:08 Plt Count 323 X10^3/uL (150.0-450.0) 08/17/17 06:08 Plt Count Comment Cancelled 08/14/17 05:55 MPV 6.2 fL (7.4-11.0) L 08/17/17 06:08 Neut % (Auto) 67.0 % (42.0-75.0) 08/17/17 06:08 Lymph % (Auto) 20.5 % (21.0-51.0) L 08/17/17 06:08 [place] % (Auto) 8.1 % (0.0-13.0) 08/17/17 06:08 Eos % (Auto) 3.7 % (0.9-2.9) H 08/17/17 06:08 Baso % (Auto) 0.7 % (0.2-1.0) 08/17/17 06:08 Neut # (Auto) 7.6 x10^3/uL (2.2-4.8) H 08/17/17 06:08 Lymph # (Auto) 2.3 X10^3/uL (1.3-2.9) 08/17/17 06:08 [place] # (Auto) 0.9 x10^3/uL (0.3-0.8) H 08/17/17 06:08 Eos # (Auto) 0.4 x10^3/uL (0.0-0.2) H 08/17/17 06:08 Baso # (Auto) 0.1 X10^3/uL (0.0-0.1) 08/17/17 06:08 Absolute Nucleated RBC 0.0 /100WBC 08/17/17 06:08 Nucleated RBCs Cancelled 08/14/17 05:55 Atypical Lymphocytes Cancelled 08/14/17 05:55 Blast Cells Cancelled 08/14/17 05:55 Smudge Cells Cancelled 08/14/17 05:55 Toxic Granulation Cancelled 08/14/17 05:55 Dohle Bodies Cancelled 08/14/17 05:55 Sandor Rods Cancelled 08/14/17 05:55 Plt Clumps, EDTA Cancelled 08/14/17 05:55 Giant Platelets Cancelled 08/14/17 05:55 Plt Morphology Comment Cancelled 08/14/17 05:55 RBC Morphology Cancelled 08/14/17 05:55 Dimorphic RBCs Cancelled 08/14/17 05:55 Polychromasia Cancelled 08/14/17 05:55 Hypochromasia Cancelled 08/14/17 05:55 Poikilocytosis Cancelled 08/14/17 05:55 Basophilic Stippling Cancelled 08/14/17 05:55 Anisocytosis Cancelled 08/14/17 05:55 Microcytosis Cancelled 08/14/17 05:55 Macrocytosis Cancelled 08/14/17 05:55 Spherocytes Cancelled 08/14/17 05:55 Pappenheimer Bodies Cancelled 08/14/17 05:55 Sickle Cells Cancelled 08/14/17 05:55 Target Cells Cancelled 08/14/17 05:55 Tear Drop Cells Cancelled 08/14/17 05:55 Ovalocytes Cancelled 08/14/17 05:55 Stomatocytes Cancelled 08/14/17 05:55 Helmet Cells Cancelled 08/14/17 05:55 Plata-[place] Bodies Cancelled 08/14/17 05:55 [place] Rings Cancelled 08/14/17 05:55 [place] A Cells Cancelled 08/14/17 05:55 Crenated Cell Cancelled 08/14/17 05:55 Acanthocytes (Spur) Cancelled 08/14/17 05:55 Rouleaux Cancelled 08/14/17 05:55 Schistocytes Cancelled 08/14/17 05:55 Sodium 139 mmol/L (136-145) 08/17/17 06:08 Corrected Sodium TNP 08/17/17 06:08 Potassium 3.8 mmol/L (3.5-5.1) 08/17/17 06:08 Chloride 104 mmol/L (98-107) 08/17/17 06:08 Carbon Dioxide 27.2 mmol/L (21-32) 08/17/17 06:08 BUN 14 mg/dL (7-18) 08/17/17 06:08 Creatinine 1.00 mg/dL (0.70-1.30) 08/17/17 06:08 Est GFR (MDRD) Af Amer > 60 (>60) 08/17/17 06:08 Est GFR (MDRD) Non-Af > 60 (>60) 08/17/17 06:08 Glucose 98 mg/dL (65-99) 08/17/17 06:08 Lactic Acid 1.7 mmol/L (0.4-2.0) 08/14/17 11:11 Calcium 8.7 mg/dL (8.5-10.1) 08/17/17 06:08 Corrected Calcium 10.0 mg/dL (8.5-10.1) 08/17/17 06:08 Magnesium 1.9 mg/dL (1.7-2.9) 08/17/17 06:08 Total Bilirubin 0.50 mg/dL (0.2-1.0) 08/17/17 06:08 AST 48 Units/L (15-37) H 08/17/17 06:08 ALT 63 Units/L (12-78) 08/17/17 06:08 Alkaline Phosphatase 83 Units/L (46-116) 08/17/17 06:08 Creatine Kinase 342 Units/L (39-308) H 08/12/17 10:53 CK-MB (CK-2) 4.0 ng/mL (0-4.0) 08/12/17 10:53 CK/CKMB % Calc 1.2 % (<4) 08/12/17 10:53 Troponin I < 0.02 ng/mL (0-1.5) 08/12/17 10:53 Total Protein 6.7 g/dL (6.4-8.2) 08/17/17 06:08 Albumin 2.4 g/dL (3.4-5.0) L 08/17/17 06:08 Globulin 4.3 g/dL (2.5-4.5) 08/17/17 06:08 Albumin/Globulin Ratio 0.6 Ratio (1.1-2.1) L 08/17/17 06:08 Total PSA 37.30 ng/mL (0.13-4.0) H 08/12/17 05:29 Specimen Type Catherized urine 08/14/17 14:56 Urine Color Yellow (YELLOW) 08/14/17 14:56 Urine Appearance Clear (CLEAR) 08/14/17 14:56 Urine pH 8.0 (5.0 - 8.0) 08/14/17 14:56 Ur Specific [place] 1.010 (1.000-1.030) 08/14/17 14:56 Urine Protein 1+ (NEGATIVE) 08/14/17 14:56 Urine Glucose (UA) Negative (NEGATIVE) 08/14/17 14:56 Urine Ketones Negative (NEGATIVE) 08/14/17 14:56 Urine Occult Blood 4+ (NEGATIVE) 08/14/17 14:56 Urine Nitrite Negative (NEGATIVE) 08/14/17 14:56 Urine Bilirubin Negative (NEGATIVE) 08/14/17 14:56 Urine Urobilinogen Normal (NORMAL) 08/14/17 14:56 Ur Leukocyte Esterase Negative (NEGATIVE) 08/14/17 14:56 Urine RBC 3-5 /HPF (NONE SEEN) 08/14/17 14:56 Urine WBC 0-2 /HPF (NONE SEEN) 08/14/17 14:56 Ur Squamous Epith Cells Rare /HPF (NEGATIVE) 08/14/17 14:56 Amorphous Sediment Trace /HPF (NEGATIVE) 08/12/17 07:52 Urine Bacteria Negative /HPF (NEGATIVE) 08/14/17 14:56 Urine Mucus Rare /HPF (NEGATIVE) 08/11/17 21:40 Ur Culture Indicated? No/not indicated 08/14/17 14:56 Hospital Course: 82 WM ER ADMISSION ON 08/11 WITH URINARY RETENTION AND LOWER ABDOMINAL PAIN, PT RODRIGEZ CATHETER CHANGED WITH IMPROVED ABDOMINAL DISTENTION AND INCREASED URINARY OUTPUT. STATES THAT HE HAS HAD HIS PROSTATE "RIMMED OUT" IN PAST. FAMILY IS PRESENT AND STATES HE IS SCHEDULED FOR NECK SURGERY ON THURSDAY WITH DR VALENCIA AT [facility]. ASKS FOR NEURONTIN TO BE RESUMED FOR RLS. PATIENT CONCERNED DUE TO INCREASING LEG WEAKNESS AND INABILITY TO WALK. DISCUSSED WITH PATIENT AND FAMILY POSSIBLE TRANSFER TO EVALUATE URINARY RETENTION. THEY WERE IN AGREEMENT AND PATIENT WAS TRANSFERRED TO [facility]. - Discharge Plan Disposition: XF [facility] HOSP Condition: Stable - Follow ups/Referrals Follow ups/Referrals: DENG SAVAGE [Other] KIERRA MCNAMARA V [Primary Care Provider] - 3 days - Instructions Instructions: Steps to Quit Smoking, [id number], Hyponatremia, [id number], Urinary Tract Infection, Adult, Chronic Kidney Disease, Adult, [id number] Forms: Patient Portal
== END 2017-08-17 19:00 | disposition short-term general hospital (02) | DRG 683 ==
LOC: ER 17:17 → MED/SURG 21:45 → MERGE 21:45 → MED/SURG 22:15
PROVIDERS: ADMIT Internal Medicine; ATTEND Internal Medicine
DX: N18.9 Chronic kidney disease, unspecified; Z78.1 Physical restraint status; N10 Acute pyelonephritis; R97.20 Elevated prostate specific antigen [PSA]; R26.89 Other abnormalities of gait and mobility; M50.30 Other cervical disc degeneration, unspecified cervical region; D72.828 Other elevated white blood cell count; R33.8 Other retention of urine; N40.1 Benign prostatic hyperplasia with lower urinary tract symptoms; R10.84 Generalized abdominal pain; N17.8 Other acute kidney failure; E87.1 Hypo-osmolality and hyponatremia; B95.62 Methicillin resistant Staphylococcus aureus infection as the cause of diseases classified elsewhere; R06.2 Wheezing; E86.0 Dehydration; L03.112 Cellulitis of left axilla; E78.2 Mixed hyperlipidemia
CPT/HCPCS: 36415; 70450; 71010; 71045; 74022; 74176; 80053; 81001; 82550; 82553; 83605; 83735; 84153; 84484; 85025; 87040; 87070; 87075; 87077; 87086; 87186; 87205; 93005; 93010; 94760; 96365; 96374; 96375; 97110; 97163; 97166; 97530; 99231; 99282; 99284; A4216; A4217; A4218; A4222; Q0177; S0138; J0696; J0744; J1170; J1630; J2060; J2270; J2405; J3475; J3480; J3486; J7030